=== PATIENT | female | born 1935 | race Caucasian/White ===

== ENCOUNTER 2019-05-19 12:26 | Emergency (ER) | payer MEDICARE, SELFPAY ==
--- NOTE | ~2019-05-19 | XR_ITS ---
EXAMINATION: XR elbow LT 2V EXAM DATE: 05/19/2019 14:33 INDICATION: Initial encounter following injury, with pain of the left elbow. TECHNIQUE: Left elbow frontal, lateral with flexion, and oblique projections obtained and reviewed. There is no prior study for comparison. FINDINGS: Left elbow anterior humeral line intact. There are no acute fractures or dislocations aguilar ntified. There is no subcutaneous gas. The soft tissue is unremarkable. There are no radiopaque f oreign bodies. IMPRESSION: 1. XR elbow LT 2V exam without acute osseous findings. Reviewed, dictated and finalized at location A. RNAL FETAL PHYSICIAN
--- NOTE | ~2019-05-19 | XR_ITS ---
XR chest 1V 05/19/2019 14:33 Indication: Right lateral rib pain after fall Procedure: PA view of the chest Comparison: No prior studies for comparison. Findings: Heart size normal. No focal air space disease, pulmonary edema, pleural effusion or suspect ed pneumothorax. Calcified granuloma left lung base. There is atherosclerosis of the aorta. No acute osseous abnormality. Impression: 1: No acute cardiopulmonary disease. Reviewed, dictated and finalized at location B. ATRIC PHYSICIAN Impression: 1: No acute cardiopulmonary disease.
--- NOTE | ~2019-05-19 | XR_ITS ---
EXAMINATION: XR shoulder LT min 2V EXAM DATE: 05/19/2019 14:32 INDICATION: Initial encounter following injury, with pain of the left shoulder. TECHNIQUE: The following left shoulder projections obtained: frontal projection with internal rotatio n, frontal projection with external rotation, Grashey, and scapular Y view (4+ views). There are no prior studies for comparison. FINDINGS: No evidence of left shoulder rotator cuff calcific tendinosis. 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 There are no acute fractures or dislocations identified. There is no subc utaneous gas. The soft tissue is unremarkable. There are no radiopaque foreign bodies. IMPRESSION: 1. XR shoulder LT min 2V exam without acute osseous findings. Reviewed, dictated and finalized at location A. EDGE STITCHER HAND
--- NOTE | ~2019-05-19 | XR_ITS ---
EXAMINATION: XR wrist LT min 3V EXAM DATE: 05/19/2019 14:33 INDICATION: Initial encounter following injury, with pain of the left wrist. TECHNIQUE: Left wrist frontal, frontal with ulnar deviation, oblique and lateral projections obtained and reviewed. There is no prior study for comparison. FINDINGS: Left wrist scapholunate joint space is maintained. 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 There are no acute fractures or dislocations identified. There is no subcuta neous gas. The soft tissue is unremarkable. There are no radiopaque foreign bodies. IMPRESSION: 1. XR wrist LT min 3V exam without acute osseous findings. Reviewed, dictated and finalized at location A. OUT INSPECTOR
[2019-05-19 13:29] VITALS: BP 127/75; PULSE 76; RESP 18; TEMP 36.6; O2SAT 100
--- NOTE | 2019-05-19 15:04 | ED.GENADULT ---
HPI - General Adult General Chief complaint: Fall <TANMAY Weber Last Filed: 05/19/19 15:09> Stated complaint: fall- arm pain <TANMAY Weber Last Filed: 05/19/19 15:09> Time Seen by Provider: 05/19/19 14:14 <TANMAY Weber Last Filed: 05/19/19 15:09> Source: patient <TANMAY Weber Last Filed: 05/19/19 15:09> Mode of arrival: ambulatory <TANMAY Weber Last Filed: 05/19/19 15:09> Limitations: no limitations <TANMAY Weber Last Filed: 05/19/19 15:09> History of Present Illness HPI narrative: Patient is a 83-year-old female who presents to emergency department for evaluation of left upper extremity injury that occurred 2 days ago after tripping while ambulating because of her shoes fell forward injuring the right lateral rib the left wrist elbow and shoulder. Denies head injury syncope loss of consciousness neck pain or other complaints presents per private vehicle in no distress. Patient does not take anything for symptoms <TANMAY Weber Last Filed: 05/19/19 15:09> Related Data Allergies/adverse reactions: Allergies Allergy/AdvReac Type Severity Reaction Status Date / Time Sulfa (Sulfonamide Allergy Unknown Verified 03/06/16 10:25 Antibiotics) <TANMAY Weber Last Filed: 05/19/19 15:09> Review of Systems Review of Systems: Narrative: CONSTITUTIONAL: Denies fever, chills, or sweats. EYES: Denies visual changes, redness, or discharge. ENT: Denies rhinorrhea, or epistaxis RESPIRATORY: Denies cough or dyspnea. GASTROINTESTINAL: Denies abdominal pain, nausea, vomiting, or diarrhea. GENITOURINARY: Denies dysuria or hematuria. SKIN: Positive for bruising and swelling MUSCULOSKELETAL: Denies back pain NEUROLOGIC: Denies headache, numbness, dizziness, or weakness. <TANMAY Weber Last Filed: 05/19/19 15:09> PMF Family History Family History: Family History (Updated 03/09/16 @ 11:39 by DOCTOR UNKNOWN) Father Family history of coronary artery disease Patient's father is Other Family history of arthritis Family history of cardiovascular disease <Terry Zheng PA-C - Last Filed: 05/19/19 15:09> Social History Social History: Social History Smoking status: Never smoker Alcohol intake: never Gender identity (if verbalized by the patient): Female <Terry Zheng PA-C - Last Filed: 05/19/19 15:09> Exam Narrative: Exam Narrative: GENERAL: Well-appearing, well-nourished, and in no acute distress. HEAD: Normocephalic, atraumatic. EYES: PERRLA and EOMI. ENT: Nares clear, no rhinorrhea or epistaxis. Mucous membranes moist. Oropharynx without tonsillar hypertrophy exudate or other lesions. NECK: Supple. No adenopathy or masses. CHEST: Clear to auscultation. No respiratory distress. No wheezes rales or rhonchi HEART: Regular rate and rhythm. No murmur heard. Normal peripheral pulses. ABDOMEN: Soft, nontender, nondistended EXTREMITIES: Normal range of motion. No edema. Patient with tenderness of the left shoulder left elbow and left wrist small amount of bruising around the left wrist. Mild tenderness to the right lateral ribs no deformity. No cervical thoracic or lumbar tenderness SKIN: Warm, dry, no rash. NEURO: No focal deficits. Alert and oriented x3. Cranial nerves II through XII grossly intact. Normal speech. Neurovascularly intact PSYCH: Normal mood and affect. <Terry Zheng PA-C - Last Filed: 05/19/19 15:09> Course Course Emergency Course: Patient in the room aware of case findings treatment plan and diagnosis agreeing to follow-up as directed or to return if symptoms worsen or concerns <Terry Zheng PA-C - Last Filed: 05/19/19 15:09> Vital Signs Vital signs: Vital Signs Temperature 97.9 F 05/19/19 13:29 Pulse Rate 76 01
== END 2019-05-19 15:53 | disposition home or self-care (01) ==
PROVIDERS: Emergency Provider General Practice
DX: S49.92XA Unspecified injury of left shoulder and upper arm, initial encounter (principal); S20.211A Contusion of right front wall of thorax, initial encounter; W01.0XXA Fall on same level from slipping, tripping and stumbling without subsequent striking against object, initial encounter
CPT/HCPCS: 71045; 73030; 73070; 73110; 99284

== ENCOUNTER 2024-08-12 17:59 | Observation (INO) | payer MEDICARE, SELFPAY ==
--- NOTE | ~2024-08-12 | CT_ITS ---
CTA brain carotid Ordering provider: Lor Puente PA-C History: . R facial droop . Comparison: None. Technique: CT angiogram head and neck was performed following timed intravenous injection of contrast . Thin slice axial images and reformatted coronal images were obtained. Three dimensional reformatted images of the brain were also obtained using a [employer] workstation. DLP: 854 mGy-cm FINDINGS: HEAD: --ANTERIOR AND MIDDLE CEREBRAL ARTERIES AND BRANCHES: Normal caliber and contour. --INTERNAL CAROTID ARTERIES: Mild atheromatous disease but no significant stenosis. No occlusion. --BASILAR ARTERY AND BRANCHES: Normal caliber and contour. No atheromatous disease. 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 --ANEURYSM: None visualized. --BRAIN: Please refer to report of CT head performed the same day. --BONES AND SUPERFICIAL SOFT TISSUES: Please refer to report of CT head performed the same day. --PARANASAL SINUSES AND MASTOIDS: Please refer to report of CT head done the same day. NECK: --RIGHT CERVICAL CAROTID SYSTEM: Normal caliber and contour. Percent stenosis per NASCET criteria is 0% No carotid dissection. Otherwise, no significant atheromatous disease or stenosis of the cervical carotid system. --LEFT CERVICAL CAROTID SYSTEM: Mild atheromatous disease of the carotid bulb and proximal internal c arotid artery without significant stenosis. Percent stenosis per NASCET criteria is 30%. No carotid dissection. --VERTEBRAL ARTERIES: Right side dominant. Normal caliber and contour. --VISUALIZED AORTIC ARCH AND BRANCHING VESSELS: Mild atheromatous disease. 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 --SOFT TISSUES: Heterogeneous appearance of the thyroid gland, a nonspecific finding in a patient of this age. --CERVICAL SPINE: Age appropriate degenerative changes. IMPRESSION: Percent stenosis per NASCET criteria is 0% on the right and 30% on the left. 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 No large vessel occlusion. Reviewed, dictated and finalized at location A.
--- NOTE | ~2024-08-12 | CT_ITS ---
History: Facial droop PROCEDURE: CT head without contrast. COMPARISON: None TECHNIQUE: Axial imaging of the head performed from the skull base to the vertex without IV contrast. Sagittal a nd coronal reformations obtained. DLP: 605 mGy-cm FINDINGS: The ventricles are normal in size, shape and position. There is no mass, mass effect or midline shift. There is no abnormal extra-axial fluid collection or intracranial hemorrhage. Visualized paranasal sinuses are clear. The mastoid air cells are well aerated. No acute displaced fractures within the overlying cranium. Impression: No acute intracranial hemorrhage or suspicious mass effect. Of note, this was not designated as a code stroke evaluation Reviewed, dictated and finalized at location A. Impression: No acute intracranial hemorrhage or suspicious mass effect. Of note, this was not designated as a code stroke evaluation
--- NOTE | ~2024-08-12 | MR_ITS ---
EXAMINATION: MR brain/brain stem wo/w con DATE: 08/13/2024 11:24 INDICATION: Acute stroke with right facial droop TECHNIQUE: Magnetic resonance imaging (MRI) of the brain and brainstem was performed 12 mL ProHance i ntravenous contrast. Sequences included sagittal and axial T1-weighted SE, axial diffusion-weighted F S SE, axial T2*-weighted GRE, axial T2-weighted FLAIR, and axial T2-weighted FSE. Postcontrast axial and coronal T1-weighted SE was obtained. Apparent diffusion coefficient (ADC) maps were created. COMPARISON: Head CT and CT angiogram dated 08/12/2024 FINDINGS: There are no areas of restricted diffusion to suggest acute infarction. No intracranial hemorrhage or abnormal intracranial mass lesion. Single small focus of white matter T2 hyperintensity the right fr ontal lobe which is well within normal limits for age. There are no intraparenchymal signal abnormali ties seen on the other pulse sequences. The ventricles are symmetric and normal in size. There are no abnormal extra-axial fluid collections. Flow voids are seen in the cerebral arteries on the T2-weigh jayleen sequences consistent with their expected patency. Changes of bilateral intraocular lens replaceme nt. Visualized orbits and soft tissues are unremarkable. There are no areas of abnormal enhancement o n the post contrast images. IMPRESSION: 1. Normal for age brain. No acute intracranial process. Reviewed, dictated and finalized at location B.
--- OUTSIDE RECORDS SUMMARY | 2024-08-12 18:01 | XMS_ITS | Clinical Summary ---
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 This disclosure is being madepursuant to the Care Everywhere program and may not contain all information available regarding this patient. Last updated 18.[facility] [employer] Allergies Active Allergy Reactions Criticality Noted Date Comments Sulfamethoxazole W-Trimethoprim 03/08 Medications * Be aware that medications may not be up to date on this document. Alwaysverify current medications with the patient. Medication Sig Dispensed Refills Start Date End Date Status omeprazole (PRILOSEC) 20 MG capsule Take 20 mg by mouth daily before breakfast Active clopidogrel (PLAVIX) 75 MG tablet Take 75 mg by mouth once daily Active fosinopril (MONOPRIL) 40 MG tablet Take 40 mg by mouth once daily Active amLODIPine (NORVASC) 5 MG tablet Take 5 mg by mouth once daily Active triamterene-hydroCHLORO thiazide (DYAZIDE) 37.5-25 MG capsule Take 1 Cap by mouth once daily Active pravastatin (PRAVACHOL) 20 MG tablet Take 20 mg by mouth at bedtime Active fluticasone propionate (FLONASE) 50 MCG/ACT nasal sprayIndications:Acute nasopharyngitis Baxter 1 Baxter into each nostril 2 times daily 1 Bottle 03/29/2016 Active Social History Tobacco Use Types Packs/Day Years Used Date Smoking Tobacco: Never Alcohol Use Standard Drinks/Week Comments No 0 (1 standard drink = 0.6 oz pur e alcohol) Sex and Gender Information Value Date Recorded Sex Assigned at Not on file Gender Identity Not on file Sexual Orientation Not on file Last Filed Vital Signs Vital Sign Reading Time Taken Comments Blood Pressure 128/74 03/29/2016 2:25 PM CAR INSTALLATIONS SUPERVISOR Pulse 86 03/29/2016 2:25 PM CAR INSTALLATIONS SUPERVISOR Temperature 36.8 C (98.3 F) 03/29/2016 2:25 PM CAR INSTALLATIONS SUPERVISOR Respiratory Rate 16 03/29/2016 2:25 PM CAR INSTALLATIONS SUPERVISOR Oxygen Saturation 96% 03/29/2016 2:25 PM CAR INSTALLATIONS SUPERVISOR Inhaled Oxygen Concentration - - Weight 63.5 kg (140 lb) 03/29/2016 2:25 PM CAR INSTALLATIONS SUPERVISOR Height 160 cm (5' 3 ) 03/29/2016 2:25 PM CAR INSTALLATIONS SUPERVISOR Body Mass Index 24.8 03/29/2016 2:25 PM CAR INSTALLATIONS SUPERVISOR Plan of Treatment Health Maintenance Due Date Last Done Comments BONE DENSITY TESTING 1934 MEDICARE AWV 12 MONTHS 1934 DTAP/TDAP/TD VACCINES (1 - Tdap) 1953 PNEUMOCOCCAL VACCINE 50+ (1 of 1 - PCV) 1984 ZOSTER VACCINE (1 of 2) 1984 Respiratory Syncytial Virus (RSV) Vaccine Pt: or over 60 yrs (1 - 1-dose 75+ series) 2009 COVID-19 VACCINE (1 - 2023-2 5 season) 2024 DEPRESSION SCREENING 05/07/2024 INFLUENZA VACCINE (Season Ended) 2025 HEPATITIS B VACCINE Aged Out No longe r eligible based on patient's age to complete this topic HIB VACCINE Aged Out No longer eligi ble based on patient's age to complete this topic HPV VACCINE Aged Out No longer eligi ble based on patient's age to complete this topic MENINGOCOCCAL (Group B) VACC INE SHARED DECISION-MAKING Aged Out No longer eligibl e based on patient's age to complete this topic MENINGOCOCCAL GROUPS A/C/Y/W VACCINE Aged Out No longer eligible b ased on patient's age to complete this topic
--- OUTSIDE RECORDS SUMMARY | 2024-08-12 18:01 | XMS_ITS | Clinical Summary ---
Author Organization [address] Address [address] [place] [phone] Care Team Providers Care Dictaphone Transcriber Name Role Phone Francia Juárez MD Primary Care Provider Francia Juárez MD Unavailable [phone] Jaylen Iglesias MD Unavailable [phone] Allergies Active Allergy Reactions Criticality Noted Date Comments Aspirin Other (See comments) Low 02/08/2017 On plavix Increased risk of bleeding on celebrex Not an allergy but contraindication Azithromycin Diarrhea Low 12/12/2021 Cat Dander Rhinitis Low 12/26/2023 Dog Dander Rhinitis Low 12/26/2023 Sulfa Unknown Medium 12/26/2023 Sulfamethoxazole-Trim ethoprim Unknown 03/29/2016 Medications coenzyme Q10 100 mg capsule Take 4 capsules (400 mg total) by mouth 2 (two) times a day Active cholecalciferol (VITAMIN D-3) 2,000 unit capsule 1 capsule (2,000 Units total) Active alpha lipoic acid 300 mg capsule 1 capsule (300 mg total) Active ascorbic acid (VITAMIN C) 500 mg tablet,chewable Acti ve estradioL (Estrace) 0.01 % (0.1 mg/gram) vaginal cream Insert 1 g into the vagina 2 (two) times a week 42.5 g 1 Active Additional Information Patient not taking.Reported on 08/12/2024 celecoxib (CeleBREX) 200 mg capsule daily Active cetirizine (ZyrTEC) 10 mg tablet Take 1 tablet (10 mg total) by mouth daily as needed for allergies 30 tablet 3 3 Active aspirin 81 mg chewable tablet Take 1 tablet (81 mg total) by mouth daily Active atorvastatin (LIPITOR) 20 mg tablet Take 1 tablet (20 mg total) by mouth daily 90 tablet 3 4 09/19/19 25 Active Additional Information Patient not taking.Reported on 08/12/2024 amLODIPine (NORVASC) 5 mg tablet Take 1 tablet (5 mg total) by mouth daily 90 tablet 3 4 Active omeprazole (PriLOSEC) 20 mg capsule Take 1 capsule (20 mg total) by mouth daily 90 capsule 3 4 Active hydroCHLOROthia zide 12.5 mg tablet Take 1 tablet (12.5 mg total) by mouth daily 90 tablet 3 4 Active atorvastatin (LIPITOR) 20 mg tablet Take 1 tablet (20 mg total) by mouth daily 90 tablet 3 4 Active Additional Information Patient not taking.Reported on 08/12/2024 fosinopriL (MONOPRIL) 40 mg tablet Take 1 tablet (40 mg total) by mouth 2 (two) times a day 180 tablet 3 4 Active atorvastatin (LIPITOR) 20 mg tablet Take 1 tablet (20 mg total) by mouth daily 4 Active celecoxib (CeleBREX) 200 mg capsule Take 1 capsule (200 mg total) by mouth daily 4 Active ALPRAZolam (XANAX) 0.25 mg tablet Take 1 tablet (0.25 mg total) by mouth daily as needed for anxiety 30 tablet 5 Active doxycycline (VIBRAMYCIN) 100 mg capsuleIndicati ons:Lower respiratory infection (e.g., bronchitis, pneumonia, pneumonitis, pulmonitis) Take 1 tablet/capsule (100 mg total) by mouth 2 (two) times a day for 7 days 14 tablet/capsu le 5 07/14/19 Active Problems Problem Noted Date Diagnosed Date 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 continue calcium and vitamin D. will plan to see bone health next year when can get another bone density done (2 years after last) Idiopathic peripheral neuropathy 01/27/2020 Assessment & Plan (01/08/2024 4:11 PM CDT): Stocking sensory loss in legs suggestive of neuropathy. EMG/NCS not performed. Likely due to prediabetes. 10/21/21 HgbA1c 6.4. Low carbohydrate diet discussed. 02/08/17 B12 472 01/13/16 ESR 6.0 Assessment & Plan (01/19/2023 4:04 PM CDT): Decreased vibratory sensation distal to the mid shins suggestive of neuropathy. EMG/NCS not performed. Likely due to prediabetes. 10/21/21 HgbA1c 6.4. Low carb diet discussed again. 02/08/17 B12 472 01/13/16 ESR 6.0 Assessment & Plan (01/27/2022 4:32 PM CDT): Decreased vibratory sensation distal to the mid shins suggestive of neuropathy. EMG/NCS not performed. Likely due to prediabetes. 10/21/21 HgbA1c 6.4. Low carb diet discussed. 02/08/17 B12 472 01/13/16 ESR 6.0 SPEP and immunofixation with next blood draw. Assessment & Plan (01/28/2021 12:47 PM CDT): Decreased vibratory sensation distal to the mid shins suggestive of neuropathy. EMG/NCS not performed. Likely due to prediabetes 01/13/16 HgbA1c 6.2; 10/03/19 HgbA1c 6.0 Low carb diet discussed. 02/08/17 B12 472 01/13/16 ESR 6.0 Will order SPEP and immunofixation with next blood draw. Assessment & Plan (01/27/2020 6:21 PM CDT): Decreased vibratory sensation distal to the mid shins suggestive of neuropathy. EMG/NCS not performed. Likely due to prediabetes 01/13/16 HgbA1c 6.2 Low carb diet discussed. 02/08/17 B12 472 01/13/16 ESR 6.0 Will order SPEP and immunofixation with next blood draw. Osteoarthritis of right knee 01/28/2019 Assessment & Plan (01/08/2024 4:15 PM CDT): Severe radiographically in 2017 Steroid injections ineffective Orthopedic follow-up Physical therapy helpful Celebrex helpful. Assessment & Plan (01/19/2023 4:10 PM CDT): Severe radiographically in 2017 Steroid injections ineffective Orthopedic follow-up Physical therapy helpful Celebrex helpful. Assessment & Plan (01/27/2022 4:36 PM CDT): Severe radiographically in 2017 Receiving steroid injections Orthopedic follow-up Scheduled for physical therapy initiation next week. Assessment & Plan (01/28/2021 12:48 PM CDT): Severe radiographically in 2017 Status post steroid injection Orthopedic follow-up Assessment & Plan (01/27/2020 6:20 PM CDT): Severe radiographically in 2017 Status post steroid injection Orthopedic follow-up Assessment & Plan (01/28/2019 11:30 AM CDT): Severe radiographically in 2017 Status post steroid injection Orthopedic follow-up If needs knee replacement, can be off aspirin for 8 days. Urinary frequency 12/18/2018 History of UTI 12/18/2018 Abnormal involuntary movements 01/11/2018 Assessment & Plan (01/08/2024 4:14 PM CDT): Involuntary hand contraction, affecting either hand, for up to 30 seconds for greater than 10 years. Focal motor seizures seem possible in the past, especially since her daughter has seizures. However, she had bilateral hand curling on April 30, 2023 which would be very atypical for seizures. Aspirin 81 mg daily, especially with 50-69% stenosis of left internal carotid artery. Continue hypertension control Atorvastatin 20 mg daily Assessment & Plan (01/19/2023 4:07 PM CDT): Involuntary hand contraction, affecting either hand, for up to 20 seconds for greater than 10 years. Focal motor seizures are possible, especially since her daughter has seizures. Resume aspirin 81 mg daily, especially with 50-69% stenosis of left internal carotid artery. Continue hypertension control Continue atorvastatin Assessment & Plan (01/27/2022 4:30 PM CDT): Involuntary hand contraction, affecting either hand, for up to 20 sec for greater than 10 years. Focal motor seizures are possible, especially since her daughter has seizures. Change aspirin 81 mg daily from 325 mg Continue hypertension control Continue atorvastatin Assessment & Plan (01/28/2021 12:47 PM CDT): Involuntary hand contraction, affecting either hand, for up to 20 sec for greater than 10 years. Focal motor seizures are possible, especially since her daughter has seizures. Aspirin 325 mg daily Continue hypertension control Continue atorvastatin Assessment & Plan (01/27/2020 6:15 PM CDT): Involuntary hand contraction, affecting either hand, for up to 20 sec for greater than 10 years. Focal motor seizures are possible, especially since her daughter has seizures. Aspirin 325 mg daily Continue hypertension control Continue pravastatin Assessment & Plan (01/28/2019 11:29 AM CDT): Involuntary hand contraction, affecting either hand, for up to 20 sec for greater than 10 years. Since symptoms have been bilateral over the past few years, transient ischemia attack seems less likely. Focal motor seizures are possible, especially since her daughter has seizures. Aspirin 325 mg daily Continue hypertension control Continue pravastatin Assessment & Plan (01/11/2018 2:30 PM CDT): Involuntary hand contraction, affecting either hand, for up to 20 sec for greater than 10 years. Since symptoms have been bilateral over the past few years, transient ischemia attack seems less likely. Focal motor seizures are possible, especially since her daughter has seizures. Will change Plavix 75 mg daily to aspirin 325 mg daily Continue hypertension control Continue pravastatin Dysesthesia 01/11/2018 Assessment & Plan (01/11/2018 2:32 PM CDT): Improved. No evidence of neuropathy on examination. Serologies for causes of peripheral neuropathy demonstrated pre diabetes with a hemoglobin A1c of 6.2 Prediabetes 01/11/2018 Assessment & Plan (01/28/2019 11:29 AM CDT): 01/13/16 HgbA1c 6.2 Low carb diet discussed. Decreased vibratory sensation in the feet bilaterally could be due to early neuropathy Assessment & Plan (01/11/2018 2:32 PM CDT): Low carb diet discussed. Involutional osteoporosis 08/09/2016 Overview (09/29/2016): Age-related osteoporosis without current pathological fracture Essential (primary) hypertension 08/09/2016 Overview (09/29/2016): Essential hypertension Benign colonic polyp 07/28/2016 Osteopenia 08/26/2014 Overview (08/10/2016): Osteopenia Hypertension 03/31/2013 Overview (08/10/2016): HYPERTENSION NOS Overweight 03/31/2013 Overview (08/11/2016): Overweight Hyperlipidemia 03/31/2013 Overview (08/11/2016): HYPERLIPIDEMIA NEC/NOS Vitamin D deficiency 01/30/2012 Overview (08/10/2016): VITAMIN D DEFICIENCY NOS Gastroesophageal reflux disease 01/30/2012 Overview (08/11/2016): ESOPHAGEAL REFLUX Obstructive sleep apnea syndrome 07/08/2007 Overview (08/10/2016): OBSTRUCTIVE SLEEP APNEA Resolved Problems Problem Noted Date Diagnosed Date Resolved Date Aspirin contraindicated 02/08/201711/2017 Overview (02/08/2017): Currently on plavix Benign essential hypertension 08/26/2014 09/19/2017 Overview (08/10/2016): Benign essential hypertension Temporary cerebral vascular dysfunction 09/20/2013 01/11/2018 Overview (08/10/2016): TIA (transient ischemic attack) Personal history of transien t cerebral ischemia 03/31/2013 01/11/2018 Overview (08/11/2016): Hx-TIA (transient ischemic attack) Encounters Date Type Department Care Team Description 08/12/2024 6:00 PM CDT Office Visit [facility] at [address] [phone] Clemencia Gonsalez NP Arrived 08/12/2024 Nurse Triage [address] [place] [phone] Francia Juárez MD 08/01/2024 10:15 AM CDT Ancillary Procedure [facility] Lab at the [address] [place] [address] Stenosis of carotid artery, unspecified laterality; Bilateral carotid artery stenosis 07/06/2024 2:15 PM [employer] Office Visit [facility] at [address] [phone] Jazmín Harding NP Lower respiratory infection (e.g., bronchitis, pneumonia, pneumonitis, pulmonitis) (Primary Dx) 06/11/[address] [phone] Brittnee Rahman NP 06/04/2024 11:38 AM [employer] - 06/04/2024 11:59 PM [employer] Hospital Encounter [facility] [address] [place] [address] Discharge Disposition: Discharge to home or self care 06/04/[address] [phone] Francia Juárez MD 06/04/2024 Orders Only [facility] at the [address] [phone] Brittnee Rahman, IMELDA Abnormal renal function test 05/30/2024 Telephone [facility] [address] [facility] [address] [place] [address] Francia Juárez MD Additional Services Or Orders from Last 3 Months Immunizations Immunization Administration Dates Next Due COVID-19 MRNA (MODERNA) .5 M L (50 MCG) VACCINE (12 YEARS AND UP) 03/04/2024 Influenza, Quad, Adjuvantate d, Intramuscular 01/28/2023,01/16/2020 Influenza, Quadrivalent, Hig h Dose, Preservative Free, Intrr 02/09/2022,02/01/2021 Influenza, Split 02/08/2010 Influenza, Trivalent, Adjuva nted, Intramuscular 02/19/2019 Influenza, Trivalent, High D ose, Split, Preservative Free, Intramuscular 02/08/2017,02/09/2016,02/10/2015,01/30 Influenza, Trivalent, IM (MDV) 02/04/2013,2011,02/08/2011 Influenza, Trivalent, Preser vative Free, Intramuscular 02/04/2013 Influenza, Unspecified 02/04/2021,02/19/2019,05/2017 Pfizer SARS-CoV-2 Monovalent Vaccination (12+ Yrs) PURPLE 02/18/2021,07/09/2020,06/15/2020 Pneumococcal Conjugate PCV 13 02/10/2015 Pneumococcal Polysaccharide PPV23 09/24/2018,05/2006 RSV Vaccine, Pref, Recombina nt, Subunit, Adjuvanted, PF, IM (Arexvy) 04/05/2023 ZOSTER LIVE 03/18/2013 ZOSTER Recombinant 03/04/2019,11/24/2018 Surgical History Surgery Date Site/Laterality Comments OTHER SURGICAL HISTORY vitamin D deficiency: Drug therapy HYSTERECTOMY BREAST LUMPECTOMY 05/07/1952 - 05/06/1953 Medical History Medical History Date Comments Arthritis Arthritis Hx Other Medical Headache, migra ine Hx Other Medical vitamin D defic iency Hyperlipidemia 03/31/2013 HYPERLIPIDEMIA N EC/NOS Family History Medical History Relation Name Comments Heart attack Father Heart attack; Heart disease Father Heart disease Mother Heart failure Mother Congestive hea rt failure; Relation Name Status Comments Father Mother Social History Tobacco Use Types Packs/Day Years Used Date Smoking Tobacco: Never Smokeless Tobacco: Never Tobacco Cessation:Counseling Given: Not Answered Alcohol Use Standard Drinks/Week Comments No 0 (1 standard drink = 0.6 oz pur e alcohol) AUDIT-C Answer Date Recorded Q1: How often do you have a drink containing alc ohol? Never 06/14/2021 Average Number of Drinks Not on file 022 Frequency of Binge Drinking Not on file 12/2021 PHQ-2 Answer Date Recorded PHQ-2 Total Score (If total score is 3 or more points, staff should administer the PHQ-9) 0 04/24/2024 Exercise Vital Sign Answer Date Recorde d Days of Exercise per Week 0 days 2018 Minutes of Exercise per Session 0 min 12/18/2018 Comments No Sex and Gender Information Value Date Recorded Sex Assigned at Not on file Legal Sex Female 1:49 AM [employer] Gender Identity Female 11/16/2021 11:10 AM CDT Sexual Orientation Not on file Obstetrics History Para Term AB IAB SAB Ectopic Multiple Livin g Live Births 3 3 3 0 0 0 0 0 3 3 Date Outcome GA Total Labor Labor/2nd/3rd Weight Sex Type Anes PTL Maylin A1 A5 Name Clin Term U Vag-S pont Living Term U Vag-S pont Living Complications:None Term 4.445 kg (9 lb 12.8 oz) U Vag-S pont Living Complications:None Last Filed Vital Signs Vital Sign Reading Time Taken Comments Blood Pressure 192/80 08/12/2024 5:26 PM CDT Pulse 74 08/12/2024 5:26 PM CDT Temperature 36.7 C (98 F) 07/06/2024 2:19 PM [employer] Respiratory Rate 20 08/12/2024 5:26 PM CDT Oxygen Saturation 95% 08/12/2024 5:26 PM CDT Inhaled Oxygen Concentration - - Weight 61.7 kg (136 lb) 08/12/2024 5:26 PM CDT Height 160 cm (5' 2.99 ) 08/12/2024 5:26 PM CDT Body Mass Index 24.1 08/12/2024 5:26 PM CDT Plan of Treatment Health Maintenance Due Date Last Done Comments DTaP/Tdap/Td Vaccine (1 - Tdap) 1946 Hepatitis B Screening 1953 Covid-19 Vaccine ( season) 2024 03/04/2024, 03/04/2024, 02/09/2023, Additional history exists Depression Screening 04/24/2025 04/24/2024, 10/16/2023, 04/24/2023, Additional history exists Fall Risk Assessment 04/24/2025 04/24/2024, 10/16/2023, 04/24/2023, Additional history exists Well Visit 65+ 04/24/2025 04/24/2024, 04/06, 04/21/2022, Additional history exists Pneumococcal vaccine 65+ Completed , 02/10/2015, 05/07/2006 Zoster Vaccine Completed 03/04/2019, 11/05, 03/18/2013 Influenza Vaccine Completed 02/08/2024, , 02/09/2022, Additional history exists Procedures Procedure Name Priority Date/Time Associated Diagnosis Comments US CAROTIDS DUPLEX BILATERAL Schedule Routine, Read Routine (OP Routine) 08/01/2024 10:10 AM CDT Stenosis of carotid artery, unspecified laterality Bilateral carotid artery stenosis EGFR Routine 06/04/2024 11:38 AM [employer] Abnormal renal function test RENAL FUNCTION PANEL Routine 06/04/2024 11:38 AM [employer] Abnormal renal function test from Last 3 Months Results * US Carotids Duplex Bilateral (08/01/2024 10:10 AM CDT) Anatomical Region Laterality Modality Vascular Bilateral Ultrasound 08/01/2024 9:49 AM CDT Narrative 08/02/2024 8:57 AM CDT [facility] - Department of Vascular Surgery, Vascular Laboratory [address] [place] [id number] Carotid Duplex Ultrasound Report Patient Name: ALEXANDREA BROOKE : 1935 (88y 8m) Study Date: 08/01/2024 9:49:09 AM Gender: F Tech: TT Location: [facility] Ref Provider: HOLLIE HALL Quality: Adequate Order Provider: HOLLIE HALL PROCEDURES: Carotid Report: Carotid duplex examination of the extracranial arteries was performed using 2D, color and spectral Doppler. INDICATIONS: I65.29 Occlusion and stenosis of unspecified carotid artery and I65.23 Occlusion and stenosis of bilateral carotid arteries. MEASUREMENTS: Right Value Units Left Value Units RT Prox CCA PSV 117 cm/sec LT Prox CCA PSV 86 cm/sec RT Prox CCA EDV 25 cm/sec LT Prox CCA EDV 21 cm/sec RT Distal CCA PSV 92 cm/sec LT Distal CCA PSV 91 cm/sec RT Distal CCA EDV 19 cm/sec LT Distal CCA EDV 24 cm/sec RT Prox ICA PSV 90 cm/sec LT Prox ICA PSV 202 cm/sec RT Prox ICA EDV 24 cm/sec LT Prox ICA EDV 65 cm/sec RT Mid ICA PSV 95 cm/sec LT Mid ICA PSV 86 cm/sec RT Mid ICA EDV 28 cm/sec LT Mid ICA EDV 20 cm/sec RT Distal ICA PSV 113 cm/sec LT Distal ICA PSV 87 cm/sec RT Distal ICA EDV 37 cm/sec LT Distal ICA EDV 24 cm/sec RT ECA Prx PSV 111 cm/sec LT ECA Prx PSV 97 cm/sec RT ICA/CCA 1.23 ratio LT ICA/CCA 2.22 ratio RT VERT PSV 61 cm/sec LT VERT PSV 68 cm/sec FINDINGS: Performing Energy Manager: Mika Plunkett RVT. Rt Common Carotid Artery: The plaque in the right CCA appears to be heterogeneous. Atherosclerotic changes of the right common carotid artery with no hemodynamically significant Doppler findings. Rt Internal Carotid Artery: The plaque in the right internal carotid artery appears to be heterogeneous and smooth. Atherosclerotic changes of the right internal carotid artery without hemodynamically significant Doppler findings. <50% stenosis. Rt External Carotid Artery: Patent right external carotid artery with evidence of atherosclerotic disease present. Rt Vertebral Artery: The right vertebral artery is patent with antegrade flow. Lt Common Carotid Artery: The plaque in the left CCA appears to be heterogeneous and smooth. Atherosclerotic changes of the left common carotid artery with no hemodynamically significant Doppler findings. Lt Internal Carotid Artery: The plaque in the left internal carotid artery appears to be heterogeneous, calcified and smooth. Significant atherosclerotic changes of the left internal carotid artery with elevated peak systolic velocity and end diastolic velocity, as above. 50-69% stenosis. Lt External Carotid Artery: Patent left external carotid artery with evidence of atherosclerotic disease present. Lt Vertebral Artery: The left vertebral artery is patent with antegrade flow. CONCLUSIONS: 1. The right internal carotid artery disease is consistent with a less than 50% stenosis. 2. The left internal carotid artery disease is consistent with a 50-69% stenosis. 3. No evidence of hemodynamically significant stenosis in the common carotid artery bilaterally. 4. Normal, antegrade flow is noted in bilateral vertebral arteries. HISTORY: HTN, HLD, Carotid disease - PREVIOUS STUDIES: Previous carotid ultrasound on 07-31-23 Rt. <50% Lt. 50-69%, <50% per PSV. DISCLAIMER: The study images and the final report will be retained in the patient chart by the Vascular Laboratory for the legally required time period. This chart constitutes the legal record of any testing performed. ATTESTATION: I have reviewed and interpreted the pertinent images and measurements of this study. I attest to the conclusions in the final report that is provided above. Electronically Signed By: Reggie Moore MD [facility] [phone] 08/02/2024 8:45:20 AM CDT Procedure Note Reggie Moore MD - 08/02/2024 [facility] - Department of Vascular Surgery,Vascular Laboratory [address] [place] [id number] Carotid Duplex Ultrasound Report Patient Name: ALEXANDREA BROOKE : 1935 (88y 8m) Study Date: 08/01/2024 9:49:09 AM Gender: F Tech: TT Location: [facility] Provider: HOLLIE HALL Quality: Adequate Order Provider: HOLLIE HALL PROCEDURES: Carotid Report: Carotid duplex examination of the extracranial arterieswas performed using 2D, color and spectral Doppler. INDICATIONS: I65.29 Occlusion and stenosis of unspecified carotid artery and I65.23Occlusion and stenosis of bilateral carotid arteries. MEASUREMENTS: Right Value Units Left Value Units RT Prox CCA PSV 117 cm/sec LT Prox CCA PSV 86 cm/sec RT Prox CCA EDV 25 cm/sec LT Prox CCA EDV 21 cm/sec RT Distal CCA PSV 92 cm/sec LT Distal CCA PSV 91 cm/sec RT Distal CCA EDV 19 cm/sec LT Distal CCA EDV 24 cm/sec RT Prox ICA PSV 90 cm/sec LT Prox ICA PSV 202 cm/sec RT Prox ICA EDV 24 cm/sec LT Prox ICA EDV 65 cm/sec RT Mid ICA PSV 95 cm/sec LT Mid ICA PSV 86 cm/sec RT Mid ICA EDV 28 cm/sec LT Mid ICA EDV 20 cm/sec RT Distal ICA PSV 113 cm/sec LT Distal ICA PSV 87 cm/sec RT Distal ICA EDV 37 cm/sec LT Distal ICA EDV 24 cm/sec RT ECA Prx PSV 111 cm/sec LT ECA Prx PSV 97 cm/sec RT ICA/CCA 1.23 ratio LT ICA/CCA 2.22 ratio RT VERT PSV 61 cm/sec LT VERT PSV 68 cm/sec FINDINGS: Performing Energy Manager: Mika Plunkett RVT. Rt Common Carotid Artery: The plaque in the right CCA appears to beheterogeneous. Atherosclerotic changes of the right common carotid artery with nohemodynamically significant Doppler findings. Rt Internal Carotid Artery: The plaque in the right internal carotidartery appears to be heterogeneous and smooth. Atherosclerotic changes of the right internalcarotid artery without hemodynamically significant Doppler findings. <50% stenosis. Rt External Carotid Artery: Patent right external carotid artery withevidence of atherosclerotic disease present. Rt Vertebral Artery: The right vertebral artery is patent with antegradeflow. Lt Common Carotid Artery: The plaque in the left CCA appears to beheterogeneous and smooth. Atherosclerotic changes of the left common carotid artery with nohemodynamically significant Doppler findings. Lt Internal Carotid Artery: The plaque in the left internal carotid arteryappears to be heterogeneous, calcified and smooth. Significant atherosclerotic changesof the left internal carotid artery with elevated peak systolic velocity and enddiastolic velocity, as above. 50-69% stenosis. Lt External Carotid Artery: Patent left external carotid artery withevidence of atherosclerotic disease present. Lt Vertebral Artery: The left vertebral artery is patent with antegradeflow. CONCLUSIONS: 1. The right internal carotid artery disease is consistent with a lessthan 50% stenosis. 2. The left internal carotid artery disease is consistent with a 50-69%stenosis. 3. No evidence of hemodynamically significant stenosis in the commoncarotid artery bilaterally. 4. Normal, antegrade flow is noted in bilateral vertebral arteries. HISTORY: HTN, HLD, Carotid disease - PREVIOUS STUDIES: Previous carotid ultrasound on 07-31-23 Rt. <50% Lt. 50-69%, <50% per PSV. DISCLAIMER: The study images and the final report will be retained in the patientchart by the Vascular Laboratory for the legally required time period. This chartconstitutes the legal record of any testing performed. ATTESTATION: I have reviewed and interpreted the pertinent images and measurements ofthis study. I attest to the conclusions in the final report that is provided above. Electronically Signed By: Reggie Moore MD [facility] [phone] 08/02/2024 8:45:20 AM CDT us Hollie Hall MD [facility] Final Result * (ABNORMAL) eGFR (06/04/2024 11:38 AM [employer]) eGFR 50(L) >=60 mL/min/1. 73 m2 Comment: Interpretive Data Reference Interval Normal >/= 90 mL/min/1.73m2 Mildly decreased* 60 - 89 mL/min/1.73m2 Mildly to moderately decreased 45 - 59 mL/min/1.73m2 Moderately to severely decreased 30 - 44 mL/min/1.73m2 Severely decreased 15 - 29 mL/min/1.73m2 Kidney Failure < 15 mL/min/1.73m2 *Relative to young adult level Estimated glomerular filtration rate is determined by the 2020 CKD-EPI equation recommended by the National Kidney Foundation (A Unifying Approach to GFR Estimation: Recommendations of the NKF-ASK Task Force on Reassessing the Inclusion of Race in Diagnosing Kidney Disease, JASN 2021). The CKD-EPI equation should not be used for patients with unstable renal function and has not been validated in children and those over 70. Current interpretive data was last reviewed 2021. Blood 06/04/2024 11:3 8 AM MIXER DIAMOND POWDER 06/04/2024 3:07 PM MIXER DIAMOND POWDER us Brittnee Rahman NP LAB BLOOD ORDERABLES Final Resu lt [facility] Department [place] [address] * Renal function panel (06/04/2024 11:38 AM MIXER DIAMOND POWDER) Sodium 140 135 - 145 mmol/L Potassium, pl 4.4 3.3 - 4.9 mmol/L [facility] Chloride 102 97 - 110 mmol/L [facility] CO2 30 22 - 32 mmol/L [facility] Anion gap 8 2 - 15 mmol/L [facility] BUN 24 6 - 25 mg/dL [facility] Creatinine 1.07 0.60 - 1.10 mg/dL [facility] Glucose 90 70 - 199 mg/dL [facility] Comment: Interpretive Data Fasting glucose >/= 126 mg/dl is diagnostic for diabetes. Fasting is defined as no caloric intake for at least 8 hours. Fasting glucose between 100 mg/dl to 125 mg/dl is diagnostic of prediabetes. In a patient with classic symptoms of hyperglycemia or hyperglycemic crisis, a random glucose >/= 200 mg/dl is diagnostic for diabetes. In the absence of unequivocal hyperglycemia, results should be confirmed by repeat testing. The classification and Diagnosis of Diabetes Diabetes Care 2021; 46: S19-S40. Current interpretive data was last revised 2022. Calcium 10.1 8.5 - 10.3 mg/dL [facility] Phosphorus, pl 2.9 2.3 - 4.5 mg/dL [facility] Albumin 4.3 3.5 - 5.0 g/dL [facility] Blood 06/04/2024 11:3 8 AM MIXER DIAMOND POWDER 06/04/2024 2:49 PM MIXER DIAMOND POWDER us Brittnee Rahman NP LAB BLOOD ORDERABLES Final Resu lt [facility] Department [place] [address] from Last 3 Months Insurance MEDICARE COMMERCIAL GENERIC Member Subscriber Plan / Payer (Ef fective 2018-) Name:Alexandrea Brooke Relation to Subscriber:Self Name:Alexandrea Brooke Payer ID:[id number] Group ID:[id number] Type:COMMERCIAL Address: [place] [id number] ELLIE MEDICARE SUPPLEMENT MEDICARE [facility] Care Teams Dictaphone Transcriber Relationship Specialty Start Date End Date Francia Juárez MD [facility] [address] [place] [address] PCP - General Internal Medicine 12/26/23 Francia Juárez MD [address] [place] [address] [address] [place] [address] 12/26/23 Jaylen Iglesias MD [address] [place] [address] Referring Physician Orthopedic Surgery 02/27/22
--- OUTSIDE RECORDS SUMMARY | 2024-08-12 18:01 | XMS_ITS | Referral Summary ---
Author Organization [facility] [address] Address [address] [place] [phone] Care Team Providers Care Door Technician Name Role Phone Francia Juárez MD Primary Care Provider Francia Juárez MD Unavailable [phone] Jaylen Iglesias MD Unavailable [phone] Encounters Date Type Department Care Team Description 08/12/2024 6:00 PM CDT Office Visit [facility] at [address] [phone] Clemencia Gonsalez NP Arrived 08/12/2024 Nurse Triage [address] [place] [phone] Francia Juárez MD 08/01/2024 10:15 AM CDT Ancillary Procedure [facility] at [facility] [address] [place] [address] 8th [place] [address] [place] [phone] Stenosis of carotid artery, unspecified laterality; Bilateral carotid artery stenosis 07/06/2024 2:15 PM HEALTH AND SAFETY MANAGER Office Visit [facility] at [address] [phone] Jazmín Harding NP Lower respiratory infection (e.g., bronchitis, pneumonia, pneumonitis, pulmonitis) (Primary Dx) 06/11/[address] [place] [address] Brittnee Rahman NP 06/04/2024 11:38 AM HEALTH AND SAFETY MANAGER - 06/04/2024 11:59 PM HEALTH AND SAFETY MANAGER Hospital Encounter [facility] [address] [place] [address] Discharge Disposition: Discharge to home or self care 06/04/[address] [place] [phone] Francia Juárez MD 06/04/2024 Orders Only [facility] at the [address] [phone] Brittnee Rahman NP Abnormal renal function test 05/30/[address] [phone] Francia Juárez MD Additional Services Or Orders from Last 3 Months Allergies Active Allergy Reactions Criticality Noted Date [...] 7 days 14 tablet/capsu le 5 07/14/19 25 Active Problems Problem Noted Date Diagnosed Date [...] 01/11/2018 Overview (08/11/2016): Hx-TIA (transient ischemic attack) Immunizations Immunization Administration Dates Next Due COVID-19 [...] 04/05/2023 ZOSTER LIVE 03/18/2013 ZOSTER Recombinant 03/04/2019,11/24/2018 Social History Tobacco Use Types Packs/Day Years [...] on file Legal Sex Female 1:49 AM HEALTH AND SAFETY MANAGER Gender Identity Female 11/16/2021 11:10 AM CDT Sexual Orientation Not on file Last Filed Vital Signs Vital Sign Reading Time Taken Comments Blood Pressure 192/80 08/12/2024 5:26 PM CDT Pulse 74 08/12/2024 5:26 PM CDT Temperature 36.7 C (98 F) 07/06/2024 2:19 PM HEALTH AND SAFETY MANAGER Respiratory Rate 20 08/12/2024 5:26 PM CDT Oxygen Saturation 95% 08/12/2024 5:26 PM CDT Inhaled Oxygen Concentration - - Weight 61.7 kg (136 lb) 08/12/2024 5:26 PM CDT Height 160 cm (5' 2.99 ) 08/12/2024 5:26 PM CDT Body Mass Index 24.1 08/12/2024 5:26 PM CDT Plan of Treatment Not on file Procedures Procedure Name Priority Date/Time Associated Diagnosis Comments US CAROTIDS DUPLEX BILATERAL Schedule Routine, Read Routine (OP Routine) 08/01/2024 10:10 AM CDT Stenosis of carotid artery, unspecified laterality Bilateral carotid artery stenosis EGFR Routine 06/04/2024 11:38 AM HEALTH AND SAFETY MANAGER Abnormal renal function test RENAL FUNCTION PANEL Routine 06/04/2024 11:38 AM HEALTH AND SAFETY MANAGER Abnormal renal function test from Last 3 Months Results * US Carotids Duplex Bilateral (08/01/2024 10:10 AM CDT) Anatomical Region Laterality Modality Vascular Bilateral Ultrasound 08/01/2024 9:49 AM CDT Narrative 08/02/2024 8:57 AM CDT [facility] - Department of Vascular Surgery, Vascular Laboratory [address] [place] [address] Carotid Duplex Ultrasound Report Patient Name: ALEXANDREA BROOKE : 1935 (88y 8m) Study Date: 08/01/2024 9:49:09 AM Gender: F Tech: TT Location: [facility] Ref Provider: HOLLIE HALL Quality: Adequate Order [...] LT VERT PSV 68 cm/sec FINDINGS: Performing Drapery Hemmer Automatic: Mika Plunkett RVT. Rt Common Carotid Artery: [...] above. Electronically Signed By: Reggie Moore MD [facility] [phone] 08/02/2024 8:45:20 AM CDT Procedure Note Reggie Moore MD - 08/02/2024 [facility] - Department of Vascular Surgery,Vascular Laboratory [address] [place] [address] Carotid Duplex Ultrasound Report Patient Name: ALEXANDREA BROOKE : 1935 (88y 8m) Study Date: 08/01/2024 9:49:09 AM Gender: F Tech: TT Location: [facility] Provider: HOLLIE HALL Quality: Adequate Order Provider: [...] LT VERT PSV 68 cm/sec FINDINGS: Performing Drapery Hemmer Automatic: Mika Plunkett RVT. Rt Common Carotid Artery: [...] - PREVIOUS STUDIES: Previous carotid ultrasound on 07-30-24 Rt. <50% Lt. 50-69%, <50% per PSV. [...] above. Electronically Signed By: Reggie Moore MD [facility] [phone] 08/02/2024 8:45:20 AM CDT us Hollie Hall MD IM US PROCEDURES Final Result * (ABNORMAL) eGFR (06/04/2024 11:38 AM HEALTH AND SAFETY MANAGER) eGFR 50(L) >=60 mL/min/1. 73 m2 Comment: [...] of Race in Diagnosing Kidney Disease, JASN 2020). The CKD-EPI equation should not be used for patients with unstable renal function and has not been validated in children and those over 70. Current interpretive data was last reviewed 2021. Blood 06/04/2024 11:3 8 AM HEALTH AND SAFETY MANAGER 06/04/2024 3:07 PM HEALTH AND SAFETY MANAGER Brittnee Rahman NP LAB BLOOD ORDERABLES Final Resu lt [facility] Department [place] [address] * Renal function panel (06/04/2024 11:38 AM HEALTH AND SAFETY MANAGER) Sodium 140 135 - 145 mmol/L Potassium, pl 4.4 3.3 - 4.9 mmol/L [facility] Chloride 102 97 - 110 mmol/L [facility] CO2 30 22 - 32 mmol/L [facility] Anion gap 8 2 - 15 mmol/L [facility] BUN 24 6 - 25 mg/dL [facility] Creatinine 1.07 0.60 - 1.10 mg/dL [facility] Glucose 90 70 - 199 mg/dL [facility] Comment: Interpretive Data Fasting glucose >/= 126 [...] classification and Diagnosis of Diabetes Diabetes Care 202; 46: S19-S40. Current interpretive data was last revised 2022. Calcium 10.1 8.5 - 10.3 mg/dL [facility] Phosphorus, pl 2.9 2.3 - 4.5 mg/dL [facility] Albumin 4.3 3.5 - 5.0 g/dL [facility] Blood 06/04/2024 11:3 8 AM HEALTH AND SAFETY MANAGER 06/04/2024 2:49 PM HEALTH AND SAFETY MANAGER Brittnee Rahman NP LAB BLOOD ORDERABLES Final Resu lt [facility] Department [place] [address] from Last 3 Months Insurance COMMERCIAL GENERIC ELLIE MEDICARE SUPPLEMENT MEDICARE [facility] Care Teams Door Technician Relationship Specialty Start Date End Date Francia Juárez MD [address] [place], [place] [address] [place] [address] PCP - General Internal Medicine 12/26/23 Francia Juárez MD [facility] [address] [place] [address] 12/26/23 Jaylen Iglesias MD [address] [place] [address] Referring Physician Orthopedic Surgery 02/27/22
--- OUTSIDE RECORDS SUMMARY | 2024-08-12 18:01 | XMS_ITS | Encounter Summary ---
Author Organization [facility] Health Address [address] [facility] [place] [address] Care Team Providers Care Internet Systems Administrator Name Role Phone Unavailable Primary Care Provider Unavailabl e Encounter Details Date Type Department Care Team (Late st Contact Info) Description 12/30/2020 Lab Requisition [facility] DermPath Lab [address] [facility], [place] [address] Sreekanth Thomas MD [address] [place] [address] Social History Tobacco Use Types Packs/Day Years Used Date Smoking Tobacco: Never Alcohol Use Standard Drinks/Week Comments No 0 (1 standard drink = 0.6 oz pur e alcohol) Sex and Gender Information Value Date Recorded Sex Assigned at Not on file Gender Identity Not on file Sexual Orientation Not on file documented as of this encounter Plan of Treatment Not on file documented as of this encounter Procedures Procedure Name Priority Date/Time Associated Diagnosis Comments DERMATOPATHOLOGY Routine 12/29/2020 12:0 0 AM CDT documented in this encounter Results * DERMATOPATHOLOGY (12/29/2020 12:00 AM CDT) Case Report Dermatopathology Report Case: [id number] Authorizing Provider: Sreekanth Thomas MD Collected: 12/29/2020 12:00 AM Ordering Location: [facility] DermPath Lab Received: 12/30/2020 11:13 AM Pathologist: Julia Hart MD Specimens: A) - Skin, right side nose B) - Skin, left upper cut lip C) - Skin, left side nose 2:57 PM CDT DERMATOPATHOLOGY LABORATORY Final Diagnosis Specimen A. 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 SKIN, left upper cut lip: BASAL CELL CARCINOMA, NODULAR TYPE (C44.319) Specimen C. SKIN, left side nose: INTRADERMAL MELANOCYTIC NEVUS (D22.39) 2:57 PM [facility] DERMATOPATHOLOGY LABORATORY Clinical History A-C: R/O BCC 2:57 PM [facility] DERMATOPATHOLOGY LABORATORY Gross Description Specimen A: Received is one formalin filled container labeled with the patient's name and designated right side nose. The specimen consists of a shave biopsy measuring 5x4x2 and 4x3x1 mm. Jar 0. Specimen B: Received is one formalin filled container labeled with the patient's name and designated left upper cut lip. The specimen consists of a shave biopsy measuring 6x6x2 mm. Jar 0. Specimen C: Received is one formalin filled container labeled with the patient's name and designated left side nose. The specimen consists of a shave biopsy measuring 4x3x1 mm. Jar 0. 2:57 PM [facility] DERMATOPATHOLOGY LABORATORY Microscopic Description Specimen A. SKIN, right side nose: Within the dermis there are aggregates of basaloid cells with a high nuclear to cytoplasmic ratio and peripheral palisading. Specimen B. SKIN, left upper cut lip: Within the dermis there are aggregates of basaloid cells with a high nuclear to cytoplasmic ratio and peripheral palisading. Specimen C. SKIN, left side nose: There are nests of cytologically bland melanocytes within the dermis that mature with depth. 2:57 PM [facility] DERMATOPATHOLOGY LABORATORY Disclaimer An external and internal positive and negative controls are appropriate for the histochemical, immunohistochemical and immunofluorescence stain(s) in this case (if any), except where stated explicitly. The performance characteristics of the stain(s) cited in this report were developed and its performance characteristic determined by the Dermatopathology Laboratory at [facility], directed by Dr. Analisa Hart. These tests need not be, and therefore are not, approved by the [place] Food and Drug Administration. The tests are used for clinical purposes. Billing Codes Specimen Charges Stain Charges 58200 53273 00876 1 1 1 08/27/202 1 2:57 PM CDT DERMATOPATHOLOGY LABORATORY Embedded Images 1 2:57 PM CDT DERMATOPATHOLOGY LABORATORY Pathology/Cytology TISSUE SPECIMEN FROM SKIN / Unknown 12/29/2020 12/30/2020 11:13 AM CDT Miscellaneous samples (specimen) TISSUE SPECIMEN FROM SKIN / Unknown 12/29/2020 12/30/2020 11:13 AM CDT Miscellaneous samples (specimen) TISSUE SPECIMEN FROM SKIN / Unknown 12/29/2020 12/30/2020 11:13 AM CDT Sreekanth Thomas MD LAB - PATHOLOGY/CYTO LOGY ORDERABLES DERMATOPATHOLOGY LABORATORY [facility] - Department of Dermatology [facility] Medicine [address] [place] [address], [address] [phone] documented in this encounter Visit Diagnoses Not on filedocumented in this encounter
--- OUTSIDE RECORDS SUMMARY | 2024-08-12 18:02 | XMS_ITS | Encounter Summary ---
Author Organization [facility] Healthcare Address [address] [place] [address] Care Team Providers Care Tobacco Cloth Reclaimer Name Role Phone Francia Juárez MD Primary Care Provider Francia Juárez MD Unavailable [phone] Jaylen Iglesias MD Unavailable [phone] Reason for Visit * Reason Comments Cerebrovascular Accident Possible stroke , this afternoon, she noticed that her mouth was not in the correct position Encounter Details Date Type Department Care Team (Late st Contact Info) Description 08/12/2024 6:00 PM CDT Office Visit [facility] at [address] [phone] Clemencia Gonsalez NP [address] [place] [address] [address] [place] [address] Arrived Social History Tobacco Use Types Packs/Day Years Used Date Smoking Tobacco: Never Smokeless Tobacco: Never Alcohol Use Standard Drinks/Week Comments [...] on file Legal Sex Female 1:49 AM MODELING AGENT Gender Identity Female 11/16/2021 11:10 AM CDT Sexual Orientation Not on file documented as of this encounter Last Filed Vital Signs Vital Sign Reading Time Taken Comments Blood Pressure 192/80 08/12/2024 5:26 PM CDT Pulse 74 08/12/2024 5:26 PM CDT Temperature - - Respiratory Rate 20 08/12/2024 5:26 PM CDT Oxygen Saturation 95% 08/12/2024 5:26 PM CDT Inhaled Oxygen Concentration - - Weight 61.7 kg (136 lb) 08/12/2024 5:26 PM CDT Height 160 cm (5' 2.99 ) 08/12/2024 5:26 PM CDT Body Mass Index 24.1 08/12/2024 5:26 PM CDT documented in this encounter Plan of Treatment Not on file documented as of this encounter Visit Diagnoses Not on filedocumented in this encounter Care Teams Tobacco Cloth Reclaimer Relationship Specialty Start Date End Date Francia Juárez MD [address] [place], [place] [address] [place] [address] PCP - General Internal Medicine 12/26/23 Francia Juárez MD [address] [place] [address] [address] [place] [address] 12/26/23 Jaylen Iglesias MD [address] [place] [address] Referring Physician Orthopedic Surgery 02/27/22 documented as of this encounter
--- OUTSIDE RECORDS SUMMARY | 2024-08-12 18:02 | XMS_ITS | Data Portability ---
Author Organization [facility] [employer] [facility], Main Office Address [address] [place] [address] Care Team Providers Care Table Runner Name Role Phone PATIENCE GOMEZ Primary Care Provider PATIENCE GOMEZ Referring Provider Assessment Encounter Date Assessment Date Assessment LastModified by Organization Details LastModified Time 11/22/2023 11/22/2023 The patient has severe primary osteoarthritis of the right knee joint moderately severe osteoarthritis left knee joint. We talked about treatment options she recently got her Celebrex refilled she is quite pleased with the results of taking the Celebrex she has been taking this chronically. Today her x-rays show stable osteoarthritic change no significant changes noted compared to x-rays done 2 years ago. She declined cortisone injections her knees feel pretty good today. She will continue with Celebrex 200 mg daily we will see her back as needed she can call at any time if she would like cortisone in the future. The patient voiced understanding and agrees with the above plan she will call for any further problems difficulties or questions. [email or web address] Not available 11/22/2023 16:08:37 Plan of Treatment Reminders Order Date Submit Date Provider Last Modified By Organization Details Last Modified Time Details Appointments None record ed. Lab None record ed. Referral None record ed. Procedures None record ed. Surgeries None record ed. Imaging XR, knee 024 11/22/19 24 [email or web address] [facility] [place], [facility], [place], [address], 16:10:40 Medication Orders None record ed. Patient TargetsNo targets recorded. Patient InstructionsNo instructions recorded. Reason for Referral None Reported. Results Created Date Observation Date Name Description Value Unit Range Abnormal Flag Note LastModifiedBy Organization Detail LastModifiedTime 12/30/19 22 XR, knee, 3 view No observ ation record ed. [id number] [facility] [place] [address], [place], [address], 07/05/2022 13:15:09 11/22/19 24 XR, knee No observ ation record ed. [email or web address] [facility] [place] [address], [place], [address], 11/22/2023 16:10:38 Result Notes None recorded. Problems Name Problem SNOMED Code Status Onset Date Resolution Date Notes Provider Name and Address Organization Details Recorded Time Bilateral osteoarthr itis of knees 3668198791181 07 Active 2021 Not Available [facility] 3 18:17:41 Osteoarthr itis of left knee joint 4939936581684 09 Active 2021 Not Available [facility] 3 18:17:41 Osteoarthr itis of right knee joint 8034442619202 00 Active 2021 Not Available [facility] 3 18:17:41 Osteoarthr itis 872998950 Active Not Available [facility] 3 18:17:41 Contractur e of palmar fascia 439607744 Active Not Available [facility] 3 18:17:41 Pain of right knee joint 7920852870679 00 Active 2021 Not Available [facility] 3 18:17:41 Problem Notes None recorded. Procedures Surgical History Date Name Laterality Status Provider Name and Address Organization Details Recorded Time Hysterectomy completed Not Available [facility] 07/05/2022 13:12:40 Imaging Results Imaging Date Name Status LastModified by Organiz ation Details LastModified Time 12/29/2021 XR, knee, 3 view completed [id number] [facility] [place] [address], [place], [address], 07/05/2022 13:15:09 11/22/2023 XR, knee completed [email or web address] [facility] [place] [address], [place], [address], 11/22/2023 16:10:38 Procedure Notes None recorded. Medical Equipment None Reported. Allergies Allergen ID Allergen Name Allergen Category Reaction Reaction Severity Criticality Documentation Date Start Date Code Code System Note Provider Name and Address Organization Details Recorded Time 70309 Substance with sulfonami de structure and antibacte rial mechanism of action (substanc e) medicatio n other Not available Not available 07/05/2022 51183 8003 SNOMED Not Available [facility] 13:15:04 Medications Name Sig Start Date Stop Date Status Note LastModified by Organization Details LastModified Time celecoxib 200 mg capsule Take 1 capsule every day by oral route. active Not Available Not Available No t Available prednisone 10 mg tablet PLEASE SEE ATTACHED FOR DETAILED DIRECTION S 11/21 completed Not Available Not Available Not Available atorvastati n 20 mg tablet TAKE 1 TABLET BY MOUTH EVERY DAY active Not Available Not Available No t Available clindamycin HCl 300 mg capsule 05/29 completed Not Available Not Available Not Available cetirizine 10 mg tablet TAKE 1 TABLET BY MOUTH EVERY DAY NEEDED FOR ALLERGY active Not Available Not Available No t Available azithromyci n 250 mg tablet TAKE 2 TABLETS BY MOUTH TODAY, THEN TAKE 1 TABLET DAILY FOR 4 DAYS 12/29 completed Not Available Not Available Not Available benzonatate 200 mg capsule TAKE 1 CAPSULE BY MOUTH THREE TIMES A DAY NEEDED FOR COUGH 12/29 completed Not Available Not Available Not Available meclizine 12.5 mg tablet 05/29 completed Not Available Not Available Not Available clopidogrel 75 mg tablet 05/29 completed Not Available Not Available Not Available ciprofloxac in 250 mg tablet 05/29 completed Not Available Not Available Not Available amlodipine 5 mg tablet TAKE 1 TABLET (5 MG TOTAL) BY MOUTH DAILY. active Not Available Not Available No t Available ciprofloxac in 500 mg tablet 05/29 completed Not Available Not Available Not Available sulfamethox azole 800 mg-trimetho prim 160 mg tablet 05/29 completed Not Available Not Available Not Available prednisone 10 mg tablets in a dose pack Take 1 tab by mouth, 3 times a day for 3 daysTake 1 tab by mouth 2 times a day for 2 daysTake 1 tab by mouth once a day for 1 day 11/21 completed Not Available Not Available Not Available amoxicillin 875 mg tablet 05/29 completed Not Available Not Available Not Available alprazolam 0.25 mg tablet TAKE 1 TABLET BY MOUTH DAILY NEEDED FOR ANXIETY. TAKE 30 MINUTES PRIOR TO ANY PROCEDURE S OR TESTS active Not Available Not Available No t Available Valium 5 mg tablet Take 1 tablet 20 mins prior to MRI, if needed, take 2nd if needed. 12/29 completed Not Available Not Available Not Available Kenalog 10 mg/mL suspension for injection In office injection administe red by the provider 12/29 completed [facility]: 0003- 0494- 20 Not Available Not Available Not Available cephalexin 500 mg capsule 05/29 completed Not Available Not Available Not Available fosinopril 40 mg tablet TAKE 1 TABLET BY MOUTH TWICE A DAY active Not Available Not Available No t Available triamterene 37.5 mg-hydrochl orothiazide 25 mg tablet 05/29 completed Not Available Not Available Not Available omeprazole 20 mg capsule,del ayed release TAKE 1 CAPSULE BY MOUTH EVERY DAY active Not Available Not Available No t Available diclofenac sodium 75 mg tablet,yancy yed release Take 1 tablet(s) 2 TIMES A DAY by oral route with food active Not Available Not Available No t Available pravastatin 20 mg tablet 12/29 completed Not Available Not Available Not Available mupirocin 2 % topical ointment 05/29 completed Not Available Not Available Not Available estradiol 0.01% (0.1 mg/gram) vaginal cream 11/21 completed Not Available Not Available Not Available fluticasone propionate 50 mcg/actuati on nasal spray,suspe nsion 12/29 completed Not Available Not Available Not Available nitrofurant oin monohydrate /macrocryst als 100 mg capsule 05/29 completed Not Available Not Available Not Available Calcium 600 2019 active Not Available Not Available Not Avai lable Vitamin D 2019 active Not Available Not Available Not Avai lable lidocaine (PF) 10 mg/mL (1 %) injection solution In office injection administe red by the provider 12/29 completed [facility]: 0409- 4276- 17 Not Available Not Available Not Available hydrochloro thiazide 12.5 mg tablet TAKE 1 TABLET BY MOUTH EVERY DAY active Not Available Not Available No t Available CoQ-10 2019 active Not Available Not Available Not Avai lable alpha lipoic acid 300 mg capsule Take by oral route. 12/29 completed Not Available Not Available Not Available Prevnar 13 (PF) 0.5 mL intramuscul ar syringe 05/29 completed Not Available Not Available Not Available ropivacaine (PF) 5 mg/mL (0.5 %) injection solution Take 20 mg by injection route. 11/21 completed Not Available Not Available Not Available Fluzone High-Dose 2014- (PF) 180 mcg/0.5 mL intramuscul ar syringe 05/29 completed Not Available Not Available Not Available Shingrix (PF) 50 mcg/0.5 mL intramuscul ar suspension, kit 12/29 completed Not Available Not Available Not Available Lotemax SM 0.38 % eye gel drops 12/29 completed Not Available Not Available Not Available Fluad 65yr up(PF)45 mcg(15 mcgx3)/0.5 mL intramuscul ar syringe TO BE ADMINISTE RED BY PHARMACIS T FOR IMMUNIZAT ION 12/29 completed Not Available Not Available Not Available Vitals Date Recorded Body mass index (BMI) Body height Body weight Provider Name and Address Organization Details Last Updated DateTime 12/29/2021 25.9 kg/m2 160.02 cm 16042.49 g Not Available [facility] 07/05/2022 13:12:57 Date Recorded Body mass index (BMI) Body height Body weight Provider Name and Address Organization Details Last Updated DateTime 01/26/2022 25.9 kg/m2 160.02 cm 61650.49 g Not Available [facility] 07/05/2022 13:12:57 Date Recorded Body mass index (BMI) Body height Body weight Provider Name and Address Organization Details Last Updated DateTime 02/23/2022 25.7 kg/m2 160.02 cm 26675.89 g Not Available [facility] 07/05/2022 13:12:57 Date Recorded Body height Body mass index (BMI) Body weight Provider Name and Address Organization Details Last Updated DateTime 11/22/2023 160.02 cm 23.4 kg/m2 92542.19 g Brittnee Coon [place] [facility] 11/22/2023 15:45:32 Social History None recorded. Functional Status None recorded. Mental Status None recorded. Family History Relationship Description Onset Age of this Age Resolved Age Notes LastModified by Organization Details LastModified Time Father Heart disease [id number] Not available 07/05/2022 13:12:40 Mother Heart disease [id number] Not available 07/05/2022 13:12:40 Medical History Condition Response ARTHRITIS Y HYPERTENSION Y Gynecological HistoryNo gynecological history recorded. Obstetrics History GPAL:G 0 P 0 0 0 0 Past Encounters Encounter ID Performer Location Encounter Start Date Encounter Closed Date Diagnosis/Indication Diagnosis SNOMED-CT Code Diagnosis ICD10 Code Diagnosis Note [id number] [facility] [place] [address] [place] [address] 12/29/2021 00:00:00 12/29/2021 14:42:34 [id number] [facility] [place] [address] [place] [address] 01/26/2022 00:00:00 01/26/2022 14:20:02 [id number] [facility] [place] [address] [place] [address] 02/23/2022 00:00:00 02/23/2022 11:55:15 [id number] ELEANOR Szymanski [facility] [place] [address] [place] [address] 11/22/2023 15:19:46 11/22/2023 16:02:55 Bilateral osteoarthritis of knees 4910896889 13496 M17.0 Osteoarthr itis of right knee joint 0175019380 06869 M17.11 Osteoarthr itis of left knee joint 1156209857 34424 M17.12 Health Concerns Section Related Observation LastModified by Organization Detai ls LastModified Time None Recorded Concern Status LastModified by Organization Details LastModified Time None Recorded Advance Directives Directive None Recorded Payers Encounter Date Sequence Insurance Name Policy Number Policy Roberts Covered Member ID Roberts Member ID Guarantor Name 11/22/2023 1 [place] M File [id number] Brittani File 11/22/2023 2 [facility] (MEDICARE SUPPLEMENT) Brittani File [id number] [place] File Notes Date Note Type Note Provider Name and Address Organization Details Recorded Time 12/29/2021 text/html KneeReported bypatient.Quality:ac elmer; throbbing; dull Severity:moderate Duration:continuous since onset Timing:chronic Alleviating Factors:sitting; lying down; rest; elevation Aggravating Factors:bending/squa tting; weight bearing Associated Symptoms:no weakness; no numbness; no tingling; no redness; no ecchymosis; no catching/locking; no popping/clicking; no buckling; no instability; no radiation down leg; no drainage; no fever; no chills; no weight loss; no change in bowel/bladder habits;swelling;warm th;grinding Not Available [employer] 12/29/2021 14:42:34 01/26/2022 text/html KneeReported bypatient.Quality:ac elmer; throbbing; dull Severity:moderate Duration:continuous since onset Timing:chronic Alleviating Factors:sitting; lying down; rest; elevation Aggravating Factors:bending/squa tting; weight bearing Associated Symptoms:no weakness; no numbness; no tingling; no redness; no ecchymosis; no catching/locking; no popping/clicking; no buckling; no instability; no radiation down leg; no drainage; no fever; no chills; no weight loss; no change in bowel/bladder habits;swelling;warm th;grinding Not Available [employer] 01/26/2022 14:20:02 02/23/2022 text/html KneeReported bypatient.Quality:ac elmer; throbbing; dull Severity:moderate Duration:continuous since onset Timing:chronic Alleviating Factors:sitting; lying down; rest; elevation Aggravating Factors:bending/squa tting; weight bearing Associated Symptoms:no weakness; no numbness; no tingling; no redness; no ecchymosis; no catching/locking; no popping/clicking; no buckling; no instability; no radiation down leg; no drainage; no fever; no chills; no weight loss; no change in bowel/bladder habits;swelling;warm th;grinding Not Available [employer] 02/23/2022 11:55:15 11/22/2023 text/html patient returns she has a history of primary osteoarthritis both knees right worse than left. She is on chronic Celebrex she has had previous cortisone injections she states these really did not work very well but the Celebrex gives her excellent relief. She states she really does not have much pain. We have not seen her for nearly 2 years she was wanting refills on her Celebrex she was advised that we need to at least check in with her every so often if we are going to continue to prescribe the medication. She comes in today for new x-rays and recheck of both knees states the knees are feeling pretty good. She goes about her daily activities and does very well she just recently turned 88 years of age and is still quite active and gets around very well. She has not interested in any sort of surgical intervention at her age + she really does not have significant discomfort occasionally the knee will flare up a bit but overall does very well. She comes in today for recheck and evaluation of both knees. She has severe primary osteoarthritis of the right knee moderately severe on the left. A new past medical history sheet was reviewed and signed on the intake sheet of today's date drug allergies current medications family social history previous surgical history 10 point review of systems was reviewed and discussed in detail today with the patient. ELEANOR Szymanski [address] [facility], [facility] [address], [place], [address], [place] 11/22/2023 16:11:16 OBGyn Episode No OBEpisode recorded.
--- OUTSIDE RECORDS SUMMARY | 2024-08-12 18:02 | XMS_ITS | Continuity of Care Document ---
Author Organization [facility] Address [address] [address] [place] [address] Phone Care Team Providers Care Solar Technician Name Role Phone [facility] Unavailable Unavail able [employer] Unavailable Unavailable Procedures Procedure Date TF Polycarb Sphcyl [place] To +/-4d .12-2d Office/outpatient Visit, Est Vision Svcs Frames Purchases TF Plastic Sphcyl [place] To +/-4d .12-2d Anti-reflective Coating Tint Photochromatic, Polycarb 8 Lens-Index>1.66Plas;>1.80Glas 8 Frames Deluxe Post-op Follow-up Visit Refraction Post-op Follow-up Visit Remove Cataract, Insert Lens Limbal Relaxing Incision Post-op Follow-up Visit [facility] Post-op Follow-up Visit Remove Cataract, Insert Lens Limbal Relaxing Incision Eye Exam & Treatment [facility] Eye Exam & Treatment Visual Functional Status Assessed Refraction Advance Directives Directive Yes / No Effective Date File Name No Information Encounters Encounter Description Practice Location Reason(s) For Visit Diagnoses Date Provider Providers Copied on Encounter [facility], [address] [place] [address] [address], [place], [place], [id number], [place] tel:[phone] [facility] No Information 2-201 0 [facility] . [address] [facility], [address], [place], [place], [id number], [place]. tel:[phone] Referring Provider: Roberto Ball, [facility] [address], [place], [address]. tel:[phone] g Provider: [employer], [address] [place], [address]. tel:[phone] Office/outpat ient Visit, [facility], [address] [place] [address] [address], [place], [place], [id number], [place] tel:[phone] [facility] No Information 3-201 0 Wally Mejia. [address] [place] [address] , [address], [place], [address], [place]. tel:[phone] [facility], [address] [place] [address] [address], [place], [place], [id number], [place] tel:[phone] [facility] No Information Dec-0 9-200 8 [facility] . [address] [facility], [address], [place], [place], [address], [place]. tel:[phone] Referring Provider: Roberto Ball, [facility] [address], [place], [address]. tel:[phone] g Provider: Cande Luna, [address] [place], [address]. tel:[phone] [facility], [address], [place], [place], [id number], [place] tel:[phone] [facility] No Information Dec-0 5-200 8 Hagen OD Nick. [address] [place] [address] , [address], [place], [address], [place]. tel:[phone] Referring Provider: Roberto Ball, [address], [place], [place], [facility]. tel:[phone] [facility], [address], [place], [place], [id number], [place] tel:[phone] [facility] No Information Nov-1 9-200 8 Wally Mejia. [address] [facility] , [address], [place], [place], [facility], [place]. tel:[phone] [facility], [address], [place], [place], [id number], [place] tel:[phone] [facility] No Information Nov-1 8-200 8 Wally Mejia. [address] [facility] , [address], [place], [place], [facility], [place]. tel:[phone] [facility], [address] [place] [address] [address], [place], [place], [id number], [place] tel:[phone] [facility] No Information Nov-0 5-200 8 Wally Mejia. [address] [place], [place] [address]ate [address] , [address], [place], [facility], [place]. tel:[phone] Referring Provider: Roberto Ball, [facility] [address], [place], [facility]. tel:[phone] [facility], [address] [place] [address] [address], [place], [place], [id number], [place] tel:[phone] [facility] No Information Oct-2 2-200 8 Wally Mejia. [facility] , [address], [place], [facility], [place]. tel:[phone] [facility], [address], [place], [place], [id number], [place] tel:[phone] [facility] No Information Oct-2 1-200 8 Wally Mejia. [address] , [address], [place], [facility], . tel:[phone] [facility], [address] [place] [address] [address], [place], [place], [id number], tel:[phone] [facility] No Information Oct-0 6-200 8 Wally Mejia. [facility] , [address], [place], [facility], . tel:[phone] Referring Provider: Roberto Ball [address] [place] [address] [address], [place], [place], [facility]. tel:[phone] [facility], [address] [place], [place] [address] [address], [place], [place], [id number], tel:[phone] [facility] No Information Oct-0 3-200 7 Wally Mejia. [address] [place] [address] , [address], [place], [place], [facility], . tel:[phone] Family History Family Member Type Diagnosis Age At Onset No Information Payers Payer name Insurance type Covered green party ID Authoriza tion(s) No Information Social History Type Description Quantity Date Captured Comments Sex Female Smoking Status No Information Chief Complaint And Reason For Visit No Information Reason For Referral Reason For Referral No Information History Of Present Illness Encounter Date Complaint History Of Prese nt Illness No Information Functional Status Date Functional Assessmen t No Information Instructions Date Instruction Additional Infor mation No Information Assessments Type Assessment Date No Information Patient Care Teams Name Effective Dates (start - stop) Status Members No Information
--- OUTSIDE RECORDS SUMMARY | 2024-08-12 18:02 | XMS_ITS | Encounter Summary ---
Author Organization [facility] Healthcare Address [address] [place] [address] Care Team Providers Care Customer Strategy Manager Name Role Phone Francia Juárez MD Primary Care Provider Francia Juárez MD Unavailable [phone] Jaylen Iglesias MD Unavailable [phone] Reason for Visit * Reason Onset Date Comments Hypertension 08/12/2024 Encounter Details Date Type Department Care Team (Late st Contact Info) Description 08/12/2024 Nurse Triage [facility] [address] [facility] [address] [place] [address] Francia Juárez MD [address] [place] [address] [address] [place], [place] [id number] Social History Tobacco Use Types Packs/Day Years [...] on file 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 The patient is there with her. The patient told her that her face feels funny. When she smiles the left side of her mouth is higher than the right. She went to an EMS station. Paramedics checked her over. BP 150/70. They told her to follow up with her PCP. They thought it might be [place]'s [place]. No problems swallowing. She is chewing without problems. Symptoms began at around 1330 today. Nothing like this has happened to her before. What do you advise? Secure chat with operations director provider who recommends an UCC or CC or PCP. I scheduled a visit this evening at the [facility]. Reason for Disposition Neurologic deficit that was brief (now gone), ANY of the following: * Weakness of the face, arm, orleg on one side of the body * Numbness of the face, arm, or leg on one side of the body * Loss of speech or garbled speech Protocols used: Neurologic [id number] * Telephone Encounter - Brittany Wolfe RN - 08/12/2024 4:47 PM CDT Regarding: freezing on left side and BP 150/70 ----- Message from Naheed Ball sent at 08/12/2024 4:36 PM CDT ----- Symptom Based Call Chief Complaint(s): freezing on left side and BP 150/70 Duration: today What type of symptom(s) is the patient experiencing? Red Flag. Is the patient concerned they are experiencing a medical emergency requiring an ambulance? No Additional Comments: Fire station confirmed no stroke, but gave BP reading Does message need to be routed? Yes-Action Needed documented in this encounter Plan of Treatment Not on file documented as of this encounter Visit Diagnoses Not on filedocumented in this encounter Care Teams Customer Strategy Manager Relationship Specialty Start Date End Date Francia Juárez MD [address] [place] [address] [address] [place] [address] PCP - General Internal Medicine 12/26/23 Francia Juárez MD [address] [place] [address] [address] [place] [address] 12/26/23 Jaylen Iglesias MD [address] [place] [address] Referring Physician Orthopedic Surgery 02/27/22 documented as of this encounter
[2024-08-12 18:06] VITALS: BP 170/74; PULSE 75; RESP 16; TEMP 36.9; O2SAT 96
--- NOTE | 2024-08-12 18:16 | ED.GENADULT ---
HPI - General Adult General Chief complaint: Unspecified <Lauren Shepherd PA-C - Last Filed: 08/15/24 18:09> Stated complaint: sent from urgent care for ct <Lauren Shepherd PA-C - Last Filed: 08/15/24 18:09> Time Seen by Provider: 08/12/24 18:16 <Lauren Shepherd PA-C - Last Filed: 08/15/24 18:09> Focused HPI: This is a 88 year old female that presents to the ER for facial droop. Reports she noticed this around 1:30 this afternoon. Reports she felt like her face looked normal last around 10 this morning. She went to the [facility] initially to be evaluated. She then called her PCP who recommended she go to [facility] urgent care who sent them to the ER. No other focal numbness, weakness. GENERAL: Elderly, well-nourished, and in no acute distress. HEAD: Normocephalic, atraumatic. CHEST: Clear to auscultation. ?No respiratory distress. HEART: Regular rate and rhythm.? NEURO: ?Alert and oriented x3. Mild right sided facial droop. Strength equal in bilateral upper and lower extremities (5/5) Patient screened in triage and initial orders placed.? ?Additional care and disposition to be based upon?diagnostic testing and treatment. <Lauren Shepherd PA-C - Last Filed: 08/15/24 18:09> Focused HPI: This is a 88 year old female that presents to the ER for facial droop. Reports she noticed this around 1:30 this afternoon. Reports she felt like her face looked normal last around 10 this morning. She went to the fire station initially to be evaluated. She then called her PCP who recommended she go to [facility] urgent care who sent them to the ER. No other focal numbness, weakness. GENERAL: Elderly, well-nourished, and in no acute distress. HEAD: Normocephalic, atraumatic. CHEST: Clear to auscultation. ?No respiratory distress. HEART: Regular rate and rhythm.? NEURO: ?Alert and oriented x3. Mild right sided facial droop. Strength equal in bilateral upper and lower extremities (5/5) Patient screened in triage and initial orders placed.? ?Additional care and disposition to be based upon?diagnostic testing and treatment. <Lor Puente PA-C - Last Filed: 08/12/24 23:51> Source: patient <Lor N. TANMAY Puente - Last Filed: 08/12/24 23:51> Mode of arrival: ambulatory <Lor Puente PA-C - Last Filed: 08/12/24 23:51> Limitations: no limitations <Lor Puente PA-C - Last Filed: 08/12/24 23:51> History of Present Illness HPI narrative: Agree with above HPI. Patient denies any changes in sensation throughout her face, arms or legs. Did have a slight right ear ache last night. Denies vision changes, headache, slurred speech, confusion, numbness or weakness of arm or leg. Patient sees a neurologist, Dr. Marco Muse with [facility]. States she has been told she has a carotid artery blockage in the past and receives yearly routine imaging. Takes ASA 81mg daily. No other anticoagulation. <Lor Puente PA-C - Last Filed: 08/12/24 23:51> Related Data Home medications: Home Medications ?Medication ?Instructions ?Recorded ?Confirmed ?Last Taken ?Type alpha lipoic acid 300 mg capsule 300 mg PO BID 08/13/24 08/13/24 Unknown History amlodipine 5 mg tablet 5 mg PO DAILY 08/13/24 08/13/24 Unknown History ascorbic acid (vitamin C) 500 mg 500 mg PO BID 08/13/24 08/13/24 Unknown History tablet (C-500) aspirin 81 mg tablet,delayed 81 mg PO DAILY 08/13/24 08/13/24 Unknown History release (Danii Low Dose Aspirin) atorvastatin 20 mg tablet 20 mg PO QPM 08/13/24 08/13/24 Unknown History calcium 600 mg (as 1 tablet PO BID 08/13/24 08/13/24 Unknown History carbonate)-vitamin D3 10 mcg (400 unit) tablet (Calcium 600 + D(3)) celecoxib 200 mg capsule 200 mg PO Q24H 08/13/24 08/13/24 Unknown History coenzyme Q10 100 mg capsule (Co 400 mg PO BID 08/13/24 08/13/24 Unknown History Q-10) ergocalciferol (vitamin D2) 50 mcg 50 mcg PO DAILY 08/13/24 08/13/24 Unknown History (2,000 unit) capsule fosinopril 40 mg tablet 40 mg PO BID 08/13/24 08/13/24 Unknown History hydrochlorothiazide 12.5 mg tablet 12.5 mg PO DAILY 08/13/24 08/13/24 Unknown History omeprazole 20 mg capsule,delayed 20 mg PO DAILY 08/13/24 08/13/24 Unknown History release <Lauren Shepherd PA-C - Last Filed: 08/15/24 18:09> Allergies/adverse reactions: Allergies Allergy/AdvReac Type Severity Reaction Status Date / Time Sulfa (Sulfonamide Allergy Unknown Verified 03/06/16 10:25 Antibiotics) <Lauren Shepherd PA-C - Last Filed: 08/15/24 18:09> Review of Systems Review of Systems: All systems reviewed & are unremarkable except as noted in HPI. <Lor Puente PA-C - Last Filed: 08/12/24 23:51> All systems reviewed & are unremarkable except as noted in HPI and below <Lor Puente PA-C - Last Filed: 08/12/24 23:51> [facility] Past Medical History Medical History: Medical History History of hyperlipidemia History of hypertension <Lauren Shepherd PA-C - Last Filed: 08/15/24 18:09> Family History Family History: Family History Father Family history of coronary artery disease Patient's father is Other Family history of arthritis Family history of cardiovascular disease <Lauren Shepherd PA-C - Last Filed: 08/15/24 18:09> Social History Social History: Social History Smoking status: Never smoker Second hand tobacco smoke exposure: No Alcohol intake: never Substance use: never Substance use type: does not use Do You Feel Safe in your Home?: Yes Lack of Transportation: No Lack of Food: Never True Current Housing: I Have Housing Concerned About Future Housing: No Difficulty Paying Gas/Electric Bills: No Difficulty Paying for Meds: No Currently Unemployed: No Education: High School Diploma/GED Difficulty w/ Childcare or Family Care: No Gender identity (if verbalized by the patient): Female Spiritual care concerns: No <Lauren Shepherd PA-C - Last Filed: 08/15/24 18:09> Exam Narrative: GENERAL: Eldelry but well appearing, well-nourished, non-toxic, in no acute distress. HEAD: Normocephalic, atraumatic. EYES: PERRL/EOMI, conjunctivae clear bilaterally. No nystagmus. TMs clear bilaterally, no cerumen impaction NECK: Supple. No meningeal signs. RESPIRATORY: Airway patent, respirations nonlabored. Clear to auscultation bilaterally, no rales, rhonchi, wheezing. CARDIOVASCULAR: Regular rate and rhythm without murmurs, rubs, or gallops. Peripheral pulses 2+ and equal bilaterally. MUSCULOSKELETAL: Moves all extremities. No gross deformities. SKIN: Warm, dry, normal color. No rashes. NEURO: A&O X3. Speech clear. Follows commands. Slight droop on R side of face, asymmetry of nasolabial fold with smiling, able to wrinkle forehead equally bilaterally. Some asymmetry with puffing out cheeks, difficulty on R side. Able to close eyes fully bilaterally. Sensation grossly intact. Steady gait. No ataxic movements. Strength 5/5 in upper and lower extremities bilaterally. Lpyg-lm-eglf and haqxxh-ex-suhr testing intact bilaterally. No pronator drift. Equal hat cleaner strength bilaterally. PSYCHIATRIC: Appropriate mood and affect. Normal interaction. <Lor Puente PA-C - Last Filed: 08/12/24 23:51> Course Vital Signs Vital signs: Vital Signs Temperature 98.5 F 08/12/24 18:06 Pulse Rate 75 08/12/24 18:06 Respiratory Rate 16 08/12/24 18:06 Blood Pressure 170/74 H 08/12/24 18:06 Pulse Oximetry 96 08/12/24 18:06 Temperature 98.0 F 08/13/24 12:00 Pulse Rate 63 08/13/24 12:35 Respiratory Rate 18 08/13/24 12:00 Blood Pressure 142/71 H 08/13/24 12:00 Pulse Oximetry 96 08/13/24 12:00 Oxygen Delivery Room Air 08/13/24 10:44 <Lauren Shepherd PA-C - Last Filed: 08/15/24 18:09> Vital Signs Temperature 98.5 F 08/12/24 18:06 Pulse Rate 75 08/12/24 18:06 Respiratory Rate 16 08/12/24 18:06 Blood Pressure 170/74 H 08/12/24 18:06 Pulse Oximetry 96 08/12/24 18:06 Temperature 98.0 F 08/13/24 12:00 Pulse Rate 63 08/13/24 12:35 Respiratory Rate 18 08/13/24 12:00 Blood Pressure 142/71 H 08/13/24 12:00 Pulse Oximetry 96 08/13/24 12:00 Oxygen Delivery Room Air 08/13/24 10:44 <Lor Puente PA-C - Last Filed: 08/12/24 23:51> Vital Signs Temperature 98.5 F 08/12/24 18:06 Pulse Rate 75 08/12/24 18:06 Respiratory Rate 16 08/12/24 18:06 Blood Pressure 170/74 H 08/12/24 18:06 Pulse Oximetry 96 08/12/24 18:06 Temperature 98.0 F 08/13/24 12:00 Pulse Rate 63 08/13/24 12:35 Respiratory Rate 18 08/13/24 12:00 Blood Pressure 142/71 H 08/13/24 12:00 Pulse Oximetry 96 08/13/24 12:00 Oxygen Delivery Room Air 08/13/24 10:44 <Mj Barriga MD - Last Filed: 08/13/24 07:31> Medical Decision Making MDM Narrative Medical decision making narrative: Patient presented to ED with right facial droop that began today, 1st noticed around 130 p.m., official last known well 10:00 a.m.. No other significant symptoms or neurologic complaints. She does have a right-sided facial droop/facial asymmetry on exam, otherwise appears neurologically intact. No cerebellar signs. Normal tfarbu-cy-qdcz and heel test and testing. No ataxia or aphasia. Vital signs are stable upon arrival. She is otherwise in no acute distress. CT brain non con negative. Laboratory studies without acute findings. No leukocytosis. Minimal anemia. Stable kidney function. EKG with NSR, no significant ectopy. Troponin undetectable. 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 Discussed case with Dr. Johnson, neurology @ [facility] (affiliate of patient's neurologist - Dr. Muse), recommended MRI, ECHO. Carotid stenosis does not require acute intervention at this time. Dual antiplatelets [id number]. No indication for transfer. Discussed case with Dr. Pompa, neurology here, agreed with plan for MRI/ECHO/dual antiplatelets, will consult. Discussed case with Dr. Lilly, hospitalist, accepted patient for admission. Patient in agreement with plan and admission. Patient started on aspirin Plavix, high-dose atorvastatin. <Lor Puente PA-C - Last Filed: 08/12/24 23:51> Medical Records Medical records reviewed: Yes I reviewed the external patient's medical records. <TANMAY Morris Last Filed: 08/12/24 23:51> Vital Signs Vital Signs: Vital Signs Temperature 98.5 F 08/12/24 18:06 Pulse Rate 75 08/12/24 18:06 Respiratory Rate 16 08/12/24 18:06 Blood Pressure 170/74 H 08/12/24 18:06 Pulse Oximetry 96 08/12/24 18:06 Temperature 98.0 F 08/13/24 12:00 Pulse Rate 63 08/13/24 12:35 Respiratory Rate 18 08/13/24 12:00 Blood Pressure 142/71 H 08/13/24 12:00 Pulse Oximetry 96 08/13/24 12:00 Oxygen Delivery Room Air 08/13/24 10:44 <Lauren Shepherd PA-C - Last Filed: 08/15/24 18:09> Vital Signs Temperature 98.5 F 08/12/24 18:06 Pulse Rate 75 08/12/24 18:06 Respiratory Rate 16 08/12/24 18:06 Blood Pressure 170/74 H 08/12/24 18:06 Pulse Oximetry 96 08/12/24 18:06 Temperature 98.0 F 08/13/24 12:00 Pulse Rate 63 08/13/24 12:35 Respiratory Rate 18 08/13/24 12:00 Blood Pressure 142/71 H 08/13/24 12:00 Pulse Oximetry 96 08/13/24 12:00 Oxygen Delivery Room Air 08/13/24 10:44 <Lor Puente PA-C - Last Filed: 08/12/24 23:51> Vital Signs Temperature 98.5 F 08/12/24 18:06 Pulse Rate 75 08/12/24 18:06 Respiratory Rate 16 08/12/24 18:06 Blood Pressure 170/74 H 08/12/24 18:06 Pulse Oximetry 96 08/12/24 18:06 Temperature 98.0 F 08/13/24 12:00 Pulse Rate 63 08/13/24 12:35 Respiratory Rate 18 08/13/24 12:00 Blood Pressure 142/71 H 08/13/24 12:00 Pulse Oximetry 96 08/13/24 12:00 Oxygen Delivery Room Air 08/13/24 10:44 <Mj Barriga MD - Last Filed: 08/13/24 07:31> Lab Data Lab results reviewed: Yes I reviewed the patient's lab results. <Lor Puente PA-C - Last Filed: 08/12/24 23:51> Result diagrams: 08/13/24 05:58 08/13/24 05:58 <Lauren Shepherd PA-C - Last Filed: 08/15/24 18:09> Labs: Lab Results 08/12/24 08/12/24 Range/Units 18:57 19:06 WBC 9.3 (4.5-10.0) K/mm3 RBC 3.87 L (4.2-5.4) M/mm3 Hgb 11.6 L (12.0-15.0) g/dL Hct 36.5 L (37.0-47.0) % MCV 94.3 (80-100) fl MCH 30.0 (26-34) pg MCHC 31.8 L (32-36) g/dl RDW 12.6 (11.5-14.5) % Plt Count 203 (150-375) k/mm3 MPV 10.9 H (7.4-10.4) fl Immature Gran % (Auto) 0.3 (0-0.5) % Neut % (Auto) 61.1 (45.5-73.1) % Lymph % (Auto) 25.1 (18.3-44.2) % [place] % (Auto) 8.3 (2.6-8.5) % Eos % (Auto) 4.1 (0-4.4) % Baso % (Auto) 1.1 (0.2-1.2) % Lymph # (Auto) 2.33 (0.9-3.2) K/mm3 [place] # (Auto) 0.8 H (0.1-0.6) K/mm3 Eos # (Auto) 0.4 H (0-0.3) K/mm3 Baso # (Auto) 0.1 (0.0-0.1) K/mm3 Abs Immat Gran (auto) 0.03 (0.00-0.031) K/mm3 Absolute Neuts (auto) 5.7 (1.3-6.7) K/mm3 Absolute Nucleated RBC 0.000 (0.0-0.012) K/mm3 Nucleated RBC % 0.0 (0.0-0.2) % PT 13.2 (11.1-14.7) Seconds INR 1.0 APTT 24.9 (22.3-36.8) Seconds Sodium 139 (137-145) mmol/L Potassium 4.0 (3.4-5.0) mmol/L Chloride 104 (98-107) mmol/L Carbon Dioxide 26 (22-30) mmol/L Anion Gap 9 (4-12) mmol/L BUN 27 H (7-17) mg/dL Creatinine 1.01 H (0.7-1.0) mg/dL Estim Creat Clear Calc 28 ml/min Estimated GFR 52 L (59 - ) Glucose 102 (65-110) mg/dL POC Capillary Glucose 98 (65-105) mg/dl Calcium 9.4 (8.4-10.2) mg/dL Total Bilirubin 0.8 (0.2-1.3) mg/dL AST 26 (14-36) U/L ALT 27 (6-35) U/L Alkaline Phosphatase 103 (38-126) U/L Troponin I < 0.012 (0.000-0.034) ng/mL Total Protein 7.0 (6.3-8.2) g/dL Albumin 4.4 (3.5-5.1) g/dL <Lauren Shepherd PA-C - Last Filed: 08/15/24 18:09> Lab Results 08/12/24 08/12/24 Range/Units 18:57 19:06 WBC 9.3 (4.5-10.0) K/mm3 RBC 3.87 L (4.2-5.4) M/mm3 Hgb 11.6 L (12.0-15.0) g/dL Hct 36.5 L (37.0-47.0) % MCV 94.3 (80-100) fl MCH 30.0 (26-34) pg MCHC 31.8 L (32-36) g/dl RDW 12.6 (11.5-14.5) % Plt Count 203 (150-375) k/mm3 MPV 10.9 H (7.4-10.4) fl Immature Gran % (Auto) 0.3 (0-0.5) % Neut % (Auto) 61.1 (45.5-73.1) % Lymph % (Auto) 25.1 (18.3-44.2) % [place] % (Auto) 8.3 (2.6-8.5) % Eos % (Auto) 4.1 (0-4.4) % Baso % (Auto) 1.1 (0.2-1.2) % Lymph # (Auto) 2.33 (0.9-3.2) K/mm3 [place] # (Auto) 0.8 H (0.1-0.6) K/mm3 Eos # (Auto) 0.4 H (0-0.3) K/mm3 Baso # (Auto) 0.1 (0.0-0.1) K/mm3 Abs Immat Gran (auto) 0.03 (0.00-0.031) K/mm3 Absolute Neuts (auto) 5.7 (1.3-6.7) K/mm3 Absolute Nucleated RBC 0.000 (0.0-0.012) K/mm3 Nucleated RBC % 0.0 (0.0-0.2) % PT 13.2 (11.1-14.7) Seconds INR 1.0 APTT 24.9 (22.3-36.8) Seconds Sodium 139 (137-145) mmol/L Potassium 4.0 (3.4-5.0) mmol/L Chloride 104 (98-107) mmol/L Carbon Dioxide 26 (22-30) mmol/L Anion Gap 9 (4-12) mmol/L BUN 27 H (7-17) mg/dL Creatinine 1.01 H (0.7-1.0) mg/dL Estim Creat Clear Calc 28 ml/min Estimated GFR 52 L (59 - ) Glucose 102 (65-110) mg/dL POC Capillary Glucose 98 (65-105) mg/dl Calcium 9.4 (8.4-10.2) mg/dL Total Bilirubin 0.8 (0.2-1.3) mg/dL AST 26 (14-36) U/L ALT 27 (6-35) U/L Alkaline Phosphatase 103 (38-126) U/L Troponin I < 0.012 (0.000-0.034) ng/mL Total Protein 7.0 (6.3-8.2) g/dL Albumin 4.4 (3.5-5.1) g/dL <Lor Puente PA-C - Last Filed: 08/12/24 23:51> Lab Results 08/12/24 08/12/24 Range/Units 18:57 19:06 WBC 9.3 (4.5-10.0) K/mm3 RBC 3.87 L (4.2-5.4) M/mm3 Hgb 11.6 L (12.0-15.0) g/dL Hct 36.5 L (37.0-47.0) % MCV 94.3 (80-100) fl MCH 30.0 (26-34) pg MCHC 31.8 L (32-36) g/dl RDW 12.6 (11.5-14.5) % Plt Count 203 (150-375) k/mm3 MPV 10.9 H (7.4-10.4) fl Immature Gran % (Auto) 0.3 (0-0.5) % Neut % (Auto) 61.1 (45.5-73.1) % Lymph % (Auto) 25.1 (18.3-44.2) % [place] % (Auto) 8.3 (2.6-8.5) % Eos % (Auto) 4.1 (0-4.4) % Baso % (Auto) 1.1 (0.2-1.2) % Lymph # (Auto) 2.33 (0.9-3.2) K/mm3 [place] # (Auto) 0.8 H (0.1-0.6) K/mm3 Eos # (Auto) 0.4 H (0-0.3) K/mm3 Baso # (Auto) 0.1 (0.0-0.1) K/mm3 Abs Immat Gran (auto) 0.03 (0.00-0.031) K/mm3 Absolute Neuts (auto) 5.7 (1.3-6.7) K/mm3 Absolute Nucleated RBC 0.000 (0.0-0.012) K/mm3 Nucleated RBC % 0.0 (0.0-0.2) % PT 13.2 (11.1-14.7) Seconds INR 1.0 APTT 24.9 (22.3-36.8) Seconds Sodium 139 (137-145) mmol/L Potassium 4.0 (3.4-5.0) mmol/L Chloride 104 (98-107) mmol/L Carbon Dioxide 26 (22-30) mmol/L Anion Gap 9 (4-12) mmol/L BUN 27 H (7-17) mg/dL Creatinine 1.01 H (0.7-1.0) mg/dL Estim Creat Clear Calc 28 ml/min Estimated GFR 52 L (59 - ) Glucose 102 (65-110) mg/dL POC Capillary Glucose 98 (65-105) mg/dl Calcium 9.4 (8.4-10.2) mg/dL Total Bilirubin 0.8 (0.2-1.3) mg/dL AST 26 (14-36) U/L ALT 27 (6-35) U/L Alkaline Phosphatase 103 (38-126) U/L Troponin I < 0.012 (0.000-0.034) ng/mL Total Protein 7.0 (6.3-8.2) g/dL Albumin 4.4 (3.5-5.1) g/dL <Mj Barriga MD - Last Filed: 08/13/24 07:31> Imaging Data Attestation: I personally reviewed and interpreted this imaging study as follows: <Lor Puente PA-C - Last Filed: 08/12/24 23:51> Radiologist's impression: ITS Impressions Head CT 08/12/24 18:47 Impression: No acute intracranial hemorrhage or suspicious mass effect. Of note, this was not designated as a code stroke evaluation Head/Neck CTA 08/12/24 20:03 IMPRESSION: Percent stenosis per NASCET criteria is 0% on the right and 30% on the left. 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 No large vessel occlusion. <Lor Puente PA-C - Last Filed: 08/12/24 23:51> ECG Data EKG #1: Attestation: I personally reviewed and interpreted this ECG as follows: <Lor Puente PA-C - Last Filed: 08/12/24 23:51> ECG completion date: 08/12/24 <TANMAY Morris Last Filed: 08/12/24 23:51> ECG completion time: 19:34 <Lor Puente PA-C - Last Filed: 08/12/24 23:51> EKG Interpretation: normal rate (71), sinus rhythm and no ST changes <Lor Puente PA-C - Last Filed: 08/12/24 23:51> Critical Care Time Critical Care Time Critical Care Time: No <Lauren Shepherd PA-C - Last Filed: 08/15/24 18:09> Discharge Plan Discharge Clinical Impression: Acute CVA (cerebrovascular accident), Facial droop <TANMAY Neal Last Filed: 08/15/24 18:09> Patient Disposition: Still a Patient <TANMAY Neal Last Filed: 08/15/24 18:09> Condition: Stable <TANMAY Neal Last Filed: 08/15/24 18:09> Attestation Supervising Provider Attestation This visit was performed by both a physician and an APC (ELEANOR Puente). I performed all aspects of the MDM as documented. <Mj Barriga MD - Last Filed: 08/13/24 07:31>
--- NOTE | 2024-08-12 18:19 | ECG_ITS ---
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
--- OUTSIDE RECORDS SUMMARY | 2024-08-12 18:39 | XMS_ITS | Encounter Summary ---
Author Organization [facility] Healthcare Address [address] [place] [address] Care Team Providers Care Early Childhood Teacher Name Role Phone Francia Juárez MD Primary Care Provider Francia Juárez MD Unavailable [phone] Jaylen Iglesias MD Unavailable [phone] Reason for Visit * Reason Comments Cerebrovascular Accident Possible stroke , this afternoon, she noticed that her mouth was not in the correct position Encounter Details Date Type Department Care Team (Late st Contact Info) Description 08/12/2024 6:00 PM CDT Office Visit [facility] at [address] [address] Clemencia Gonsalez NP [address] [place] [address] [address] [place] [address] Facial asymmetry (Primary Dx); Elevated blood pressure reading Social History Tobacco Use Types Packs/Day Years [...] on file 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 Gender Identity Female 11/16/2021 11:10 AM CDT [...] documented as of this encounter Visit Diagnoses Diagnosis 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, face, and jaw Elevated blood pressure reading Elevated blood pressure reading without diagnosis of hypertension documented in this encounter Care Teams Early Childhood Teacher Relationship Specialty Start Date End Date Francia Juárez MD [address] [place] [address] [address] [place] [address] PCP - General Internal Medicine 12/26/23 Francia Juárez MD [address] [place] [address] [address] [place] [address] 12/26/23 Jaylen Iglesias MD [address] [place] [id number] Referring Physician Orthopedic Surgery 02/27/22 documented as of this encounter
--- OUTSIDE RECORDS SUMMARY | 2024-08-12 18:39 | XMS_ITS | Continuity of Care Document ---
Author Organization [facility] Address [address] [place] [address] Phone Care Team Providers Care Erp Manager Name Role Phone [facility] Unavailable Unavail able Ada Painting Unavailable Unavailable Procedures Procedure Date TF Polycarb Sphcyl Early To +/-4d .12-2d Office/outpatient Visit, Est [facility] Svcs Frames Purchases TF Plastic Sphcyl Early To +/-4d .12-2d Anti-reflective Coating Tint Photochromatic, [...] Diagnoses Date Provider Providers Copied on Encounter [facility], [address] [place] [address] [address], [place], [place], [address], [place] tel:[phone] [facility] No Information 2-201 0 [facility] . [address] [facility], [address], [place], [place], [address], [place]. tel:[phone] Referring Provider: Roberto Ball, [facility] [address], [place], [address]. tel:[phone] g Provider: Ada Painting, [address] [place], [address]. tel:[phone] Office/outpat ient Visit, [facility], [address] [place] [address] [address], [place], [place], [address], [place] tel:[phone] [facility] No Information 3-201 0 Wally Mejia. [address] [place] [address] , [address], [place], [address], [place]. tel:[phone] [facility], [address] [place] [address] [address], [place], [place], [address], [place] tel:[phone] [facility] No Information Dec-0 9-200 8 [facility] . [address] [facility], [address], [place], [place], [address], [place]. tel:[phone] Referring Provider: Roberto Ball, [facility] [address], [place], [address]. tel:[phone] g Provider: Cande Luna, [address] [place], [address]. tel:[phone] [facility], [address], [place], [place], [address], [place] tel:[phone] [facility] No Information Dec-0 5-200 8 Hagen OD Nick. [address] [place] [address] , [address], [place], [address], [place]. tel:[phone] Referring Provider: Roberto Ball, [address], [place], [place], [facility]. tel:[phone] [facility], [address], [place], [place], [address], [place] tel:[phone] [facility] No Information Nov-1 9-200 8 Wally Mejia. [address] [facility] , [address], [place], [facility], [place]. tel:[phone] [facility], [address], [place], [place], [address], [place] tel:[phone] [facility] No Information Nov-1 8-200 8 Wally Mejia. [address] [facility] , [address], [place], [facility], [place]. tel:[phone] [facility], [address] [place] [address] [address], [place], [place], [address], [place] tel:[phone] [facility] No Information Nov-0 5-200 8 Wally Mejia. [address] [place], [place] [address]ate Center , [address], [place], [facility], [place]. tel:[phone] Referring Provider: Roberto Ball, [facility] [address], [place], [facility]. tel:[phone] [facility], [address] [place] [address] [address], [place], [place], [address], [place] tel:[phone] [facility] No Information Oct-2 2-200 8 Wally Mejia. [facility] , [address], [place], [facility], [place]. tel:[phone] [facility], [address], [place], [place], [address], [place] tel:[phone] [facility] No Information Oct-2 1-200 8 Wally Mejia. [address] , [address], [place], [facility], . tel:[phone] [facility], [address] [place] [address] [address], [place], [place], [address], tel:[phone] [facility] No Information Oct-0 6-200 8 Wally Mejia. [facility] , [address], [place], [facility], . tel:[phone] Referring Provider: Roberto Ball [address] [place] [address] [address], [place], [facility]. tel:[phone] [facility], [address] [place], [place] [address], [place], [place], [id number], tel:[phone] [facility] No Information Oct-0 3-200 7 Wally Mejia. [address] [place] [address] , [address], [place], [facility], . tel:[phone] Family History Family Member Type Diagnosis Age At Onset No Information Payers Payer name Insurance type Covered republican ID Authoriza tion(s) No Information Social History [...]
--- OUTSIDE RECORDS SUMMARY | 2024-08-12 18:39 | XMS_ITS | Encounter Summary ---
Author Organization [facility] Address [address] [facility] [address] Care Team Providers Care Exceptional Needs Teacher Name Role Phone Unavailable Primary Care Provider Unavailabl e Encounter Details Date Type Department Care Team (Late st Contact Info) Description 12/30/2020 Lab Requisition [facility] [address] [facility], [place] [address] Sreekanth Thomas MD [address] [place] [address] Social History Tobacco Use Types [...] AM CDT) Case Report Dermatopathology Report Case: [id number] Authorizing Provider: Sreekanth Thomas MD Collected: 12/29/2020 12:00 AM Ordering Location: [facility] Received: 12/30/2020 11:13 AM Pathologist: [...] nose: INTRADERMAL MELANOCYTIC NEVUS (D22.39) 2:[address] [facility] Clinical History A-C: R/O BCC 2:[address] [facility] Gross Description Specimen A: Received [...] measuring 4x3x1 mm. Jar 0. 2:[address] [facility] Microscopic Description Specimen A. SKIN, [...] dermis that mature with depth. 2:[address] [facility] Disclaimer An external and internal positive and negative controls are appropriate for the histochemical, immunohistochemical and immunofluorescence stain(s) in this case (if any), except where stated explicitly. The performance characteristics of the stain(s) cited in this report were developed and its performance characteristic determined by the Dermatopathology Laboratory at [facility], directed by Dr. Analisa Hart. These tests need not be, and therefore are not, approved by the [place] Food and Drug Administration. The tests are used for clinical purposes. Billing Codes Specimen Charges Stain Charges 89155 17849 46526 1 1 1 08/27/202 1 2:57 PM [...] DERMATOPATHOLOGY LABORATORY [facility] - Department of Dermatology [facility] Medicine [address] [place] [address], [address] [phone] documented in this encounter Visit Diagnoses Not on filedocumented in this encounter
--- OUTSIDE RECORDS SUMMARY | 2024-08-12 18:39 | XMS_ITS | Clinical Summary ---
Author Organization [address] Address [address] [place] [address] Care Team Providers Care Production Boring Machine Operator Name Role Phone Francia Juárez MD Primary Care Provider Francia Juárez MD Unavailable [phone] Jaylen Iglesias MD Unavailable Allergies Active Allergy Reactions Criticality Noted Date [...] Description 08/12/2024 6:00 PM CDT Office Visit [facility] at [address] [address] Clemencia Gonsalez NP Facial asymmetry (Primary Dx); Elevated blood pressure reading 08/12/2024 Nurse Triage [address] [place] [phone] Francia Juárez MD 08/01/2024 10:15 AM CDT Ancillary Procedure [facility] at the [address]th [place] [address] [place] [address] Stenosis of carotid artery, unspecified laterality; Bilateral carotid artery stenosis 07/06/2024 2:15 PM CONSULTING ENGINEER Office Visit [facility] at [address] [phone] Jazmín Harding NP Lower respiratory infection (e.g., bronchitis, pneumonia, pneumonitis, pulmonitis) (Primary Dx) 06/11/[address] [address] Brittnee Rahman NP 06/04/2024 11:38 AM CONSULTING ENGINEER - 06/04/2024 11:59 PM CONSULTING ENGINEER Hospital Encounter [facility] [address] [place] [address] Discharge Disposition: Discharge to home or self care 06/04/[address] [address] Francia Juárez MD 06/04/2024 Orders Only [facility] at the [address] [address] Brittnee Rahman NP Abnormal renal function test 05/30/2024 Telephone [facility] [address] [facility] [address] [place] [address] Francia Juárez MD Additional Services [...] on file Legal Sex Female 1:49 AM CONSULTING ENGINEER Gender Identity Female 11/16/2021 11:10 AM CDT [...] 36.7 C (98 F) 07/06/2024 2:19 PM CONSULTING ENGINEER Respiratory Rate 20 08/12/2024 5:26 PM CDT [...] 1946 Hepatitis B Screening 1953 Covid-19 Vaccine (2023- season) 2024 03/04/2024, 03/04/2024, 02/09/2023, Additional history exists Depression Screening 04/24/2025 04/24/2024, 10/16/2023, 04/24/2023, Additional history exists Fall Risk Assessment 04/24/2025 04/24/2024, 10/16/2023, 04/24/2023, Additional history exists Well Visit 65+ 04/24/2025 04/24/2024, 04/06, 04/21/2022, Additional history exists Pneumococcal vaccine 65+ Completed 019, 02/10/2015, 05/07/2006 Zoster Vaccine Completed 03/04/2019, 11/05, 03/18/2013 Influenza Vaccine Completed 02/08/2024, , 02/09/2022, Additional history exists Procedures Procedure Name Priority Date/Time Associated Diagnosis Comments US CAROTIDS DUPLEX BILATERAL Schedule Routine, Read Routine (OP Routine) 08/01/2024 10:10 AM CDT Stenosis of carotid artery, unspecified laterality Bilateral carotid artery stenosis EGFR Routine 06/04/2024 11:38 AM CONSULTING ENGINEER Abnormal renal function test RENAL FUNCTION PANEL Routine 06/04/2024 11:38 AM CONSULTING ENGINEER Abnormal renal function test from Last 3 Months Results * US Carotids Duplex Bilateral (08/01/2024 10:10 AM CDT) Anatomical Region Laterality Modality Vascular Bilateral Ultrasound 08/01/2024 9:49 AM CDT Narrative 08/02/2024 8:57 AM CDT [facility] - Department of Vascular Surgery, Vascular Laboratory [address] [place] [address] Carotid Duplex Ultrasound Report Patient Name: ALEXANDREA BROOKE : 1935 (88y 8m) Study Date: 08/01/2024 9:49:09 AM Gender: F Tech: TT Location: [facility] Ref Provider: HOLLIE HALL Quality: Adequate [...] LT VERT PSV 68 cm/sec FINDINGS: Performing Stain Dipper: Mika Plunkett RVT. Rt Common Carotid Artery: [...] above. Electronically Signed By: Reggie Moore MD [facility] [phone] 08/02/2024 8:45:20 AM CDT Procedure Note Reggie Moore MD - 08/02/2024 [facility] - Department of Vascular Surgery,Vascular Laboratory [address] [place] [address] Carotid Duplex Ultrasound Report Patient Name: ALEXANDREA BROOKE : 1935 (88y 8m) Study Date: 08/01/2024 9:49:09 AM Gender: F Tech: TT Location: [facility] Ref Provider: HOLLIE HALL Quality: Adequate [...] LT VERT PSV 68 cm/sec FINDINGS: Performing Stain Dipper: Mika Plunkett RVT. Rt Common Carotid Artery: [...] above. Electronically Signed By: Reggie Moore MD [facility] [phone] 08/02/2024 8:45:20 AM CDT us Hollie Hall MD [facility] PROCEDURES Final Result * (ABNORMAL) eGFR (06/04/2024 11:38 AM CONSULTING ENGINEER) eGFR 50(L) >=60 mL/min/1. 73 m2 Comment: [...] reviewed 2021. Blood 06/04/2024 11:3 8 AM CONSULTING ENGINEER 06/04/2024 3:07 PM CONSULTING ENGINEER us Brittnee Rahman NP LAB BLOOD ORDERABLES Final Resu lt PA [facility] Department [place] [address] * Renal function panel (06/04/2024 11:38 AM CONSULTING ENGINEER) Sodium 140 135 - 145 mmol/L Potassium, pl 4.4 3.3 - 4.9 mmol/L [facility] Chloride 102 97 - 110 mmol/L [facility] CO2 30 22 - 32 mmol/L [facility] Anion gap 8 2 - 15 mmol/L [facility] BUN 24 6 - 25 mg/dL [facility] Creatinine 1.07 0.60 - 1.10 mg/dL [facility] Glucose 90 70 - 199 mg/dL [facility] Comment: Interpretive Data Fasting glucose [...] 2022. Calcium 10.1 8.5 - 10.3 mg/dL [facility] Phosphorus, pl 2.9 2.3 - 4.5 mg/dL [facility] Albumin 4.3 3.5 - 5.0 g/dL [facility] Blood 06/04/2024 11:3 8 AM CONSULTING ENGINEER 06/04/2024 2:49 PM CONSULTING ENGINEER us Brittnee Rahman NP LAB BLOOD ORDERABLES Final Resu lt [facility] Department [place] [address] from Last 3 Months Insurance MEDICARE COMMERCIAL GENERIC MEDICARE ELLIE MEDICARE SUPPLEMENT MEDICARE [facility] Care Teams Production Boring Machine Operator Relationship Specialty Start Date End Date Francia Juárez MD [employer] [place] [address] [place] [address] PCP - General Internal Medicine 12/26/23 Francia Juárez MD [employer] [address] [place] [address] 12/26/23 Jaylen Iglesias MD [address] [place] [address] Referring Physician Orthopedic Surgery 02/27/22
--- OUTSIDE RECORDS SUMMARY | 2024-08-12 18:39 | XMS_ITS | Clinical Summary ---
Author Organization [facility] Address [address] [place] [place] [address] Care Team Providers Care Hydrostatic Tubing Tester Name Role Phone Unavailable Primary Care Provider Unavailabl e Source Comments [facility],non-owned Affiliates and Associated Physician Practices is amultiple site organization consisting of ambulatory clinics and hospital sitesin [place], [place], [place] and [place]. This disclosure is being madepursuant to the Care Everywhere program and may not contain all information available regarding this patient. Last updated 18.[facility] Allergies Active Allergy Reactions Criticality Noted Date [...] propionate (FLONASE) 50 MCG/ACT nasal sprayIndications:Acute nasopharyngitis [place] 1 [place] into each nostril 2 times daily 1 [...] Comments Blood Pressure 128/74 03/29/2016 2:25 PM MAINTENANCE AND CUSTODIAN SUPERVISOR Pulse 86 03/29/2016 2:25 PM MAINTENANCE AND CUSTODIAN SUPERVISOR Temperature 36.8 C (98.3 F) 03/29/2016 2:25 PM MAINTENANCE AND CUSTODIAN SUPERVISOR Respiratory Rate 16 03/29/2016 2:25 PM MAINTENANCE AND CUSTODIAN SUPERVISOR Oxygen Saturation 96% 03/29/2016 2:25 PM MAINTENANCE AND CUSTODIAN SUPERVISOR Inhaled Oxygen Concentration - - Weight 63.5 kg (140 lb) 03/29/2016 2:25 PM MAINTENANCE AND CUSTODIAN SUPERVISOR Height 160 cm (5' 3 ) 03/29/2016 2:25 PM MAINTENANCE AND CUSTODIAN SUPERVISOR Body Mass Index 24.8 03/29/2016 2:25 PM MAINTENANCE AND CUSTODIAN SUPERVISOR Plan of Treatment Health Maintenance Due [...]
--- OUTSIDE RECORDS SUMMARY | 2024-08-12 18:39 | XMS_ITS | Encounter Summary ---
Author Organization [facility] Healthcare Address [address] [place] [address] Care Team Providers Care Loom Cleaner Name Role Phone Francia Juárez MD Primary Care Provider Francia Juárez MD Unavailable [phone] Jaylen Iglesias MD Unavailable [phone] Reason for Visit * Reason Onset Date Comments Hypertension 08/12/2024 Encounter Details Date Type Department Care Team (Late st Contact Info) Description 08/12/2024 Nurse Triage [facility] [address] [facility] [address] [place] [address] Francia Juárez MD [address] [place] [address] [address] [place], [place] [id number] Social History Tobacco Use Types Packs/Day Years [...] on file Legal Sex Female 1:49 AM URGENT CARE TECHNICIAN Gender Identity Female 11/16/2021 11:10 AM CDT Sexual Orientation Not on file documented as of this encounter Miscellaneous Notes * Telephone Encounter - Brittany Wolfe RN - 08/12/2024 4:57 PM CDT [facility] Nurse Triage: [facility] 04/24/24 cc: stiffness of left cheek BP [...] What do you advise? Secure chat with aeronautical inspector provider who recommends an UCC or CC or PCP. I scheduled a visit this evening at the [facility]. Reason for Disposition Neurologic deficit that was brief (now gone), ANY of the following: * Weakness of the face, arm, orleg on one side of the body * Numbness of the face, arm, or leg on one side of the body * Loss of speech or garbled speech Protocols used: Neurologic [id number] * Telephone Encounter - Brittany Wolfe RN [...] on filedocumented in this encounter Care Teams Loom Cleaner Relationship Specialty Start Date End Date Francia Juárez MD [address] [place] [address] [address] [place] [address] PCP - General Internal Medicine 12/26/23 Francia Juárez MD [address] [place] [address] [address] [place] [address] 12/26/23 Jaylen Iglesias MD [address] [place] [address] Referring Physician Orthopedic Surgery 02/27/22 documented as of this encounter
--- OUTSIDE RECORDS SUMMARY | 2024-08-12 18:39 | XMS_ITS | Referral Summary ---
Author Organization [facility] [address] Address [address] [place] [phone] Care Team Providers Care Carton Marker Machine Name Role Phone Francia Juárez MD Primary Care Provider Francia Juárez MD Unavailable [phone] Jaylen Iglesias MD Unavailable [phone] Encounters Date Type Department Care Team Description 08/12/2024 6:00 PM CDT Office Visit [facility] at [address] [phone] Clemencia Gonsalez NP Facial asymmetry (Primary Dx); Elevated blood pressure reading 08/12/2024 Nurse Triage [address] [place] [phone] Francia Juárez MD 08/01/2024 10:15 AM CDT Ancillary Procedure [facility] at [facility] [address] [place] [address] 8th [place] [address] Stenosis of carotid artery, unspecified laterality; Bilateral carotid artery stenosis 07/06/2024 2:15 PM MIXING SUPERVISOR Office Visit [facility] at [address] [phone] Jazmín Harding NP Lower respiratory infection (e.g., bronchitis, pneumonia, pneumonitis, pulmonitis) (Primary Dx) 06/11/[address] [place] [phone] Brittnee Rahman NP 06/04/2024 11:38 AM MIXING SUPERVISOR - 06/04/2024 11:59 PM MIXING SUPERVISOR Hospital Encounter [facility] [address] [place] [address] Discharge Disposition: Discharge to home or self care 06/04/2024 Telephone [facility] [address] [place] [phone] Francia Juárez MD 06/04/2024 Orders Only [facility] at the [address] [phone] Brittnee Rahman NP Abnormal renal function test 05/30/2024 Telephone [facility] [address] [place] [phone] Francia Juárez MD Additional Services Or Orders [...] on file Legal Sex Female 1:49 AM MIXING SUPERVISOR Gender Identity Female 11/16/2021 11:10 AM CDT Sexual Orientation Not on file Last Filed Vital Signs Vital Sign Reading Time Taken Comments Blood Pressure 192/80 08/12/2024 5:26 PM CDT Pulse 74 08/12/2024 5:26 PM CDT Temperature 36.7 C (98 F) 07/06/2024 2:19 PM MIXING SUPERVISOR Respiratory Rate 20 08/12/2024 5:26 PM CDT [...] artery stenosis EGFR Routine 06/04/2024 11:38 AM MIXING SUPERVISOR Abnormal renal function test RENAL FUNCTION PANEL Routine 06/04/2024 11:38 AM MIXING SUPERVISOR Abnormal renal function test from Last 3 Months Results * US Carotids Duplex Bilateral (08/01/2024 10:10 AM CDT) Anatomical Region Laterality Modality Vascular Bilateral Ultrasound 08/01/2024 9:49 AM CDT Narrative 08/02/2024 8:57 AM CDT [facility] - Department of Vascular Surgery, Vascular Laboratory [address] [place] [phone] Carotid Duplex Ultrasound Report Patient Name: ALEXANDREA BROOKE : 1935 (88y 8m) Study Date: 08/01/2024 9:49:09 AM Gender: F Tech: TT Location: [facility] Provider: HOLLIE HALL Quality: Adequate Order [...] LT VERT PSV 68 cm/sec FINDINGS: Performing Chemical Equipment Controller: Mika Plunkett RVT. Rt Common Carotid Artery: [...] above. Electronically Signed By: Reggie Moore MD [facility] [phone] 08/02/2024 8:45:20 AM CDT Procedure Note Reggie Moore MD - 08/02/2024 [facility] - Department of Vascular Surgery,Vascular Laboratory [address] [place] [address] Carotid Duplex Ultrasound Report Patient Name: ALEXANDREA BROOKE : 1935 (88y 8m) Study Date: 08/01/2024 9:49:09 AM Gender: F Tech: TT Location: [facility] Ref Provider: HOLLIE HALL Quality: Adequate Order [...] LT VERT PSV 68 cm/sec FINDINGS: Performing Chemical Equipment Controller: Mika Plunkett RVT. Rt Common Carotid Artery: [...] - PREVIOUS STUDIES: Previous carotid ultrasound on 3-24 Rt. <50% Lt. 50-69%, <50% per PSV. [...] above. Electronically Signed By: Reggie Moore MD [facility] [phone] 08/02/2024 8:45:20 AM CDT us Hollie Hall MD [facility] US PROCEDURES Final Result * (ABNORMAL) eGFR (06/04/2024 11:38 AM MIXING SUPERVISOR) eGFR 50(L) >=60 mL/min/1. 73 m2 Comment: [...] of Race in Diagnosing Kidney Disease, JASN 202). The CKD-EPI equation should not be used for patients with unstable renal function and has not been validated in children and those over 70. Current interpretive data was last reviewed 2021. Blood 06/04/2024 11:3 8 AM MIXING SUPERVISOR 06/04/2024 3:07 PM MIXING SUPERVISOR Brittnee Rahman NP LAB BLOOD ORDERABLES Final Resu lt PA [facility] Department [place] [address] * Renal function panel (06/04/2024 11:38 AM MIXING SUPERVISOR) Sodium 140 135 - 145 mmol/L Potassium, pl 4.4 3.3 - 4.9 mmol/L [facility] Chloride 102 97 - 110 mmol/L [facility] CO2 30 22 - 32 mmol/L [facility] Anion gap 8 2 - 15 mmol/L [facility] BUN 24 6 - 25 mg/dL [facility] Creatinine 1.07 0.60 - 1.10 mg/dL [facility] Glucose 90 70 - 199 mg/dL [facility] Comment: Interpretive Data Fasting glucose >/= [...] 2022. Calcium 10.1 8.5 - 10.3 mg/dL [facility] Phosphorus, pl 2.9 2.3 - 4.5 mg/dL [facility] Albumin 4.3 3.5 - 5.0 g/dL [facility] Blood 06/04/2024 11:3 8 AM MIXING SUPERVISOR 06/04/2024 2:49 PM MIXING SUPERVISOR Brittnee Rahman NP LAB BLOOD ORDERABLES Final Resu lt PA [facility] Department [place] [address] from Last 3 Months Insurance COMMERCIAL GENERIC MEDICARE ELLIE MEDICARE SUPPLEMENT MEDICARE [facility] Care Teams Carton Marker Machine Relationship Specialty Start Date End Date Francia Juárez MD [address] [place] [address] [address] [place] [address] PCP - General Internal Medicine 12/26/23 Francia Juárez MD [address] [place], [place] [address]K[address] [place] [address] 12/26/23 Jaylen Iglesias MD [facility] [place] [address] Referring Physician Orthopedic Surgery 02/27/22
[2024-08-12 19:03] LABS: Basophils Absolute Auto 0.1 K/mm3 (0.0-0.1); Basophils Percent Auto 1.1 % (0.2-1.2); Eosinophils Absolute Auto 0.4 K/mm3 (0-0.3); Eosinophils Percent Auto 4.1 % (0-4.4); Hematocrit 36.5 % (37.0-47.0); Hemoglobin 11.6 g/dL (12.0-15.0); Immature Granulocyte Absolute 0.03 K/mm3 (0.00-0.031); Immature Granulocyte Percent A 0.3 % (0-0.5); Lymphocytes Absolute Auto 2.33 K/mm3 (0.9-3.2); Lymphocytes Percent Auto 25.1 % (18.3-44.2); Mean Corpuscular HGB Conc 31.8 g/dl (32-36); Mean Corpuscular Volume 94.3 fl (80-100); Mean Platelet Volume 10.9 fl (7.4-10.4); Monocytes Absolute Auto 0.8 K/mm3 (0.1-0.6); Monocytes Percent Auto 8.3 % (2.6-8.5); Neutrophils Absolute Auto 5.7 K/mm3 (1.3-6.7); Neutrophils Percent Auto 61.1 % (45.5-73.1); Platelet Count Result 203 k/mm3 (150-375); Red Blood Count 3.87 M/mm3 (4.2-5.4); Red Cell Distribution Width 12.6 % (11.5-14.5); White Blood Count 9.3 K/mm3 (4.5-10.0)
[2024-08-12 19:07] VITALS: BP 156/69; PULSE 79; RESP 17; O2SAT 98
[2024-08-12 19:09] LABS: Glucose Point of Care 98 mg/dl (65-105)
[2024-08-12 19:13] LABS: Alanine Aminotransferase 27 U/L (6-35); Albumin Level 4.4 g/dL (3.5-5.1); Alkaline Phosphatase 103 U/L (38-126); Anion Gap 9 mmol/L (4-12); Aspartate Amino Transferase 26 U/L (14-36); Bilirubin,Total 0.8 mg/dL (0.2-1.3); Blood Urea Nitrogen 27 mg/dL (7-17); Calcium 9.4 mg/dL (8.4-10.2); Carbon Dioxide 26 mmol/L (22-30); Chloride 104 mmol/L (98-107); Estimated CRCL calculation 28 ml/min; Estimated Glomerular Filt Rate 52; Glucose 102 mg/dL (65-110); Sodium 139 mmol/L (137-145)
[2024-08-12 19:25] LABS: Troponin I < 0.012 ng/mL (0.000-0.034)
[2024-08-12 19:29] LABS: Prothrombin Time 13.2 Seconds (11.1-14.7)
[2024-08-12 19:30] LABS: Partial Thromboplastin Time 24.9 Seconds (22.3-36.8)
[2024-08-12 20:21] VITALS: BP 121/67; PULSE 70; RESP 18; O2SAT 95
[2024-08-12] MEDS: ASPIRIN 81 MG CHEWABLE TABLET 324 MG PO (23:14)
[2024-08-12] MEDS: CLOPIDOGREL BISULFATE 300 MG TABLET PO (23:14)
[2024-08-12 23:26] VITALS: BP 182/70; PULSE 68; RESP 18; O2SAT 96
--- NOTE | 2024-08-13 | ECHO_ITS ---
Patient Info Name: Brittani Brooke Age: 88 years : 1935 Gender: Female Ht: 63 in Wt: 137 lbs BSA: 1.67 m2 HR: 72 bpm BP: 172 / 65 mmHg Heart Rhythm: Sinus Rhythm Technical Quality: Good Exam Date: 08/13/2024 10:05 AM Exam Location: Echo Lab Patient Status: Inpatient Admit Date: 08/12/2024 Staff Ordering Physician: Lor Puente PA-C Security Attendant: Sharon Alvarado RDCS Attending Provider: Jose Lilly MD Referring Physician: Kwame WISDOM; Exam Type: CA echo doppler w bubble study Study Info Indications - CVA W/U Complete two-dimensional, color flow and Doppler transthoracic echocardiogram is performed with agitated saline. Contrast/Agitated Saline Contrast/Ag. Saline: Agitated Saline Amount: 20.00 ml Existing IV Access: Yes IV Access Condition: patent with no signs of infiltration Summary 1. Left ventricular chamber dimension is normal. 2. Left ventricular systolic function is normal, estimated at 65-70%. 3. The left ventricular diastolic function is grade I diastolic dysfunction. 4. E/e' 15 is elevated. 5. Left atrial chamber dimension is mildly enlarged. 6. There is mild aortic valve sclerosis. 7. There is trace aortic valve regurgitation. 8. No pulmonary hypertension, estimated pulmonary arterial systolic pressure is 29 mmHg. Left Ventricle E/e' 15 is elevated. Left ventricular chamber dimension is normal. Left ventricular systolic function is normal, estimated at 65-70%. The left ventricular diastolic function is grade I diastolic dysfunction. Right Ventricle Right ventricular systolic function is normal and with normal TAPSE 2.1 cm. Right ventricular chamber dimension is normal. Left Atria Left atrial chamber dimension is mildly enlarged. Right Atria Right atrial chamber dimension is normal. Atrial Septum Agitated saline injection with and without valsalva maneuver opacified right side cardiac chambers without shunt to left side cardiac chambers. Intact interatrial septum visualized by 2D and agitated saline imaging. Aortic Valve The aortic valve is trileaflet. There is mild aortic valve sclerosis. There is no aortic valve stenosis. There is trace aortic valve regurgitation. Pulmonic Valve There is no pulmonic regurgitation. Mitral Valve There is no mitral valve stenosis. There is no mitral valve regurgitation. Tricuspid Valve There is no tricuspid valve regurgitation. No pulmonary hypertension, estimated pulmonary arterial systolic pressure is 29 mmHg. Pericardium/Pleural There is no pericardial effusion. Inferior Vena Cava Normal inferior vena cava with >50% collapse upon inspiration consistent with normal right atrial pressure, 5 mmHg. Aorta The aortic root size at the sinus of Valsalva is normal. Left Ventricular Outflow Tract Name Value Normal LVOT 2D LVOT Diameter 2.0 cm LVOT Doppler LVOT Peak Gradient 8 mmHg LVOT Mean Gradient 3 mmHg LVOT VTI 27 cm LVOT VTI/AV VTI Ratio 0.7 LVOT Stroke Volume 83 ml LVOT CO 5.2 l/min LVOT CI 3.1 l/min/m2 Pulmonic Valve Name Value Normal RVOT Doppler RVOT Peak Gradient 4 mmHg PV Doppler PV Peak Gradient 6 mmHg Mitral Valve Name Value Normal MV Doppler MV Decel Ciales 443 cm/s2 MV PHT 58 ms MV Area (PHT) 3.8 cm2 4.0-5.0 MV Diastolic Function MV E Peak Velocity 88 cm/s MV A Peak Velocity 126 cm/s MV E/A 0.7 MV Decel Time 199 ms MV Annular TDI MV E/e' (Septal) 16.5 <=8.0 MV E/e' (Lateral) 15.4 <=8.0 MV E/e' (Average) 16.0 Tricuspid Valve Name Value Normal TV Regurgitation Doppler TR Peak Velocity 245 cm/s TR Peak Gradient 24 mmHg Estimated PAP/RSVP RA Pressure 5 mmHg <=5 PA Systolic Pressure 29 mmHg <36 RV Systolic Pressure 29 mmHg <36 Aorta Name Value Normal Ascending Aorta Ao Root Diameter (MM) 2.9 cm Ao Root Diam Index (MM) 1.8 cm/m2 Aortic Valve Name Value Normal AV Doppler AV Peak Velocity 185 cm/s AV Peak Gradient 14 mmHg AV Mean Gradient 7 mmHg AV VTI 39 cm AV Area (Cont Eq VTI) 2.2 cm2 >=3.0 AV Area (Cont Eq Norman) 2.3 cm2 AV Regurgitation 2D LVOT Area 3.0 cm2 Ventricles Name Value Normal LV Dimensions 2D/MM IVS Diastolic Thickness (2D) 1.0 cm 0.6-1.0 LVID Diastole (2D) 4.4 cm 3.8-5.2 LVIW Diastolic Thickness (2D) 0.9 cm 0.6-0.9 LVID Systole (2D) 2.5 cm 2.2-3.5 LVOT Diameter 2.0 cm LV Mass (2D Cubed) 140.16 g 67.00-162.00 LV Mass Index (2D Cubed) 84 g/m2 43-95 Relative Wall Thickness (2D) 0.43 LV Fractional Shortening/Ejection Fraction 2D/MM LV Fractional Shortening (2D) 44 % 27-45 LV EF (2D Teicholz) 76 % 54-74 LV Diastolic Volume (4C MOD) 51 ml LV EF (4C MOD) 69 % LV Diastolic Volume (2C MOD) 85 ml LV EF (2C MOD) 68 % LV Diastolic Volume (BP MOD) 66 ml 46-106 LV Diastolic Volume Index (BP MOD) 39 ml/m2 29-61 LV Systolic Volume (BP MOD) 21 ml 14-42 LV Systolic Volume Index (BP MOD) 13 ml/m2 8-24 LV EF (BP MOD) 68 % 54-74 LV Diastolic Length (4C) 7.2 cm LV Systolic Length (4C) 5.8 cm LV Stroke Volume (4C MOD) 35 ml Atria Name Value Normal LA Dimensions LA Dimension (MM) 4.6 cm 2.7-3.8 LA Volume (4C A-L) 54 ml LA Volume (BP A-L) 60 ml RA Dimensions RA Area (4C) 12.8 cm2 <=18.0 Report Signatures
[2024-08-13 00:37] VITALS: BMI 24.3; BMI 25.1
[2024-08-13 00:55] VITALS: BP 165/69; PULSE 68; RESP 18; TEMP 36.7; O2SAT 94
[2024-08-13 01:59] VITALS: PULSE 68
--- NOTE | 2024-08-13 03:53 | PM.IMHP ---
H&P: HPI History of Present Illness Date/Time: 08/13/24 03:53 Chief Complaint: 1. Right facial droop Narrative: Brittani Brooke is an 88-year-old female with a medical history significant for dyslipidemia, osteoporosis, hypertension and GERD About 1:00 p.m. on day of presentation, she was applying makeup in front of the mirror prior to visiting some friends noticed the right nasal labial fold which more shallow compared to the left; with no know modifying factors, it came to be associated with anxiety. She denies associated symptoms of visual/speech impairment, focal limb weakness, dizziness, falls or chest pain She does not smoke/2 tobacco, drink alcohol or consume recreational/illicit drugs. Work-up findings: VS demonstrate hypertension At the bedside, the right nasolabial fold is more shallow than the left. 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 No large vessel occlusion. CT Head: No acute intracranial hemorrhage or suspicious mass effect. Brittani Brooke will be admitted evaluated and managed for possible CVA Review of Systems Review of Systems: All systems reviewed & are unremarkable except as noted in HPI and below PMFSH Past Medical History Medical History History of hyperlipidemia History of hypertension Family History Family History Father Family history of coronary artery disease Patient's father is Other Family history of arthritis Family history of cardiovascular disease Social History Social History Smoking status: Never smoker Second hand tobacco smoke exposure: No Alcohol intake: never Substance use: never Substance use type: does not use Do You Feel Safe in your Home?: Yes Lack of Transportation: No Lack of Food: Never True Current Housing: I Have Housing Concerned About Future Housing: No Difficulty Paying Gas/Electric Bills: No Difficulty Paying for Meds: No Currently Unemployed: No Education: High School Diploma/GED Difficulty w/ Childcare or Family Care: No Gender identity (if verbalized by the patient): Female Spiritual care concerns: No Meds Home Medications and Allergies Home Medications ?Medication ?Instructions ?Recorded ?Confirmed ?Type alpha lipoic acid 300 mg capsule 300 mg PO BID 08/13/24 08/13/24 History amlodipine 5 mg tablet 5 mg PO DAILY 08/13/24 08/13/24 History ascorbic acid (vitamin C) 500 mg 500 mg PO BID 08/13/24 08/13/24 History tablet (C-500) aspirin 81 mg tablet,delayed 81 mg PO DAILY 08/13/24 08/13/24 History release (Danii Low Dose Aspirin) atorvastatin 20 mg tablet 20 mg PO QPM 08/13/24 08/13/24 History calcium 600 mg (as 1 tablet PO BID 08/13/24 08/13/24 History carbonate)-vitamin D3 10 mcg (400 unit) tablet (Calcium 600 + D(3)) celecoxib 200 mg capsule 200 mg PO Q24H 08/13/24 08/13/24 History coenzyme Q10 100 mg capsule (Co 400 mg PO BID 08/13/24 08/13/24 History Q-10) ergocalciferol (vitamin D2) 50 mcg 50 mcg PO DAILY 08/13/24 08/13/24 History (2,000 unit) capsule fosinopril 40 mg tablet 40 mg PO BID 08/13/24 08/13/24 History hydrochlorothiazide 12.5 mg tablet 12.5 mg PO DAILY 08/13/24 08/13/24 History omeprazole 20 mg capsule,delayed 20 mg PO DAILY 08/13/24 08/13/24 History release Allergies Allergy/AdvReac Type Severity Reaction Status Date / Time Sulfa (Sulfonamide Allergy Unknown Verified 03/06/16 10:25 Antibiotics) Vital Signs Vital Signs - 24 hr 08/12/24 18:06 08/12/24 19:07 08/12/24 20:21 Temperature 98.5 F Pulse Rate 75 79 70 Respiratory Rate 16 17 18 Blood Pressure 170/74 H 156/69 H 121/67 Pulse Oximetry 96 98 95 Oxygen Delivery 08/12/24 23:26 08/13/24 00:55 08/13/24 01:59 Temperature 98.1 F Pulse Rate 68 68 68 Respiratory Rate 18 18 Blood Pressure 182/70 H 165/69 H Pulse Oximetry 96 94 Oxygen Delivery Room Air Exam Const: General: comfortable HENMT: Ears: TM's normal bilaterally Face/Nose/Sinus: Normal nares present Mouth: Yes moist mucous membranes Eyes: General: appearance normal, both eyes and all related structures Pupils: Equal, round and reactive pupils present EOM: EOMs intact bilaterally Resp: Effort & Inspection: normal respiratory effort Auscultation: clear to auscultation bilaterally Cardio: Rate: regular rate Rhythm: regular rhythm GI: GI Palp: Yes Soft to palpation Auscultation: normal bowel sounds Skin: General skin exam: normal color Wounds: no wounds Neuro: General: gait normal Speech: normal speech Motor exam (neuro): 5/5 motor strength present throughout and Normal motor muscle tone present throughout Psych: Mental Status: mental status grossly normal Affect: normal affect H&P: Results Labs Labs: Short CBC 08/12/24 Range/Units 18:57 WBC 9.3 (4.5-10.0) K/mm3 Hgb 11.6 L (12.0-15.0) g/dL Hct 36.5 L (37.0-47.0) % Plt Count 203 (150-375) k/mm3 BMP 08/12/24 18:57 Sodium 139 Potassium 4.0 Chloride 104 Carbon Dioxide 26 BUN 27 H Creatinine 1.01 H Glucose 102 Calcium 9.4 Cardiac Enzymes 08/12/24 Range/Units 18:57 Troponin I < 0.012 (0.000-0.034) ng/mL Liver Function 08/12/24 Range/Units 18:57 Total Bilirubin 0.8 (0.2-1.3) mg/dL AST 26 (14-36) U/L ALT 27 (6-35) U/L Alkaline Phosphatase 103 (38-126) U/L Albumin 4.4 (3.5-5.1) g/dL Assessment and Plan Assessment and plan (1) Stroke-like symptoms: Code(s): R29.90 - Unspecified symptoms and signs involving the nervous system Status: Acute (2) Facial droop: Code(s): R29.810 - Facial weakness Status: Acute Plan Acute and principal conditions 1. Stroke-like symptoms 2. Right facial droop Rx: A. MRI brain B. ST/PT/OT eval and Rx C. ECHO if CVA confirmed D. Lipid panel; HbA1c E. Fall and safety precautions F. Telemetry monitoring Chronic and stable conditions 1. GERD. On PPI 2. Dyslipidemia. On Atorvastatin 3. Hypertension. On Amlodipine Miscellaneous care 1. Code status. Full 2. Nutrition. heart healthy 3. VTE prophylaxis.
[2024-08-13 04:00] VITALS: BP 172/65; PULSE 72; RESP 18; TEMP 37.1; O2SAT 95
[2024-08-13] MEDS: SODIUM CHLORIDE 0.9% IV 1,000 ML 50 ML IV CONT (04:38)
[2024-08-13 06:20] LABS: Basophils Absolute Auto 0.1 K/mm3 (0.0-0.1); Basophils Percent Auto 1.3 % (0.2-1.2); Eosinophils Absolute Auto 0.4 K/mm3 (0-0.3); Eosinophils Percent Auto 5.3 % (0-4.4); Hematocrit 34.2 % (37.0-47.0); Hemoglobin 10.9 g/dL (12.0-15.0); Immature Granulocyte Absolute 0.04 K/mm3 (0.00-0.031); Immature Granulocyte Percent A 0.5 % (0-0.5); Lymphocytes Absolute Auto 1.99 K/mm3 (0.9-3.2); Lymphocytes Percent Auto 24.9 % (18.3-44.2); Mean Corpuscular HGB Conc 31.9 g/dl (32-36); Mean Corpuscular Hemoglobin 30.4 pg (26-34); Mean Corpuscular Volume 95.5 fl (80-100); Mean Platelet Volume 11.1 fl (7.4-10.4); Monocytes Absolute Auto 0.7 K/mm3 (0.1-0.6); Monocytes Percent Auto 8.6 % (2.6-8.5); Neutrophils Absolute Auto 4.8 K/mm3 (1.3-6.7); Neutrophils Percent Auto 59.4 % (45.5-73.1); Platelet Count Result 187 k/mm3 (150-375); Red Blood Count 3.58 M/mm3 (4.2-5.4); Red Cell Distribution Width 12.3 % (11.5-14.5)
[2024-08-13 06:33] LABS: Cholesterol 110 mg/dL (0-200); HDL Direct 38 mg/dL; Triglycerides 64 mg/dL (<150)
[2024-08-13 06:35] LABS: Alanine Aminotransferase 25 U/L (6-35); Albumin Level 3.9 g/dL (3.5-5.1); Alkaline Phosphatase 107 U/L (38-126); Anion Gap 7 mmol/L (4-12); Aspartate Amino Transferase 26 U/L (14-36); Bilirubin,Total 0.9 mg/dL (0.2-1.3); Blood Urea Nitrogen 24 mg/dL (7-17); Calcium 9.3 mg/dL (8.4-10.2); Carbon Dioxide 28 mmol/L (22-30); Chloride 104 mmol/L (98-107); Estimated CRCL calculation 33 ml/min; Estimated Glomerular Filt Rate > 60; Glucose 112 mg/dL (65-110); Potassium 4.1 mmol/L (3.4-5.0); Sodium 139 mmol/L (137-145)
[2024-08-13 06:44] LABS: LDL Cholesterol Direct 49 mg/dL
[2024-08-13 07:00] LABS: Hemoglobin A1C 5.9 % (<5.7)
[2024-08-13 08:00] VITALS: BP 182/70; PULSE 71; PULSE 78; RESP 18; TEMP 36.5; O2SAT 98
[2024-08-13 08:15] LABS: Glucose Point of Care 108 mg/dl (65-105)
[2024-08-13] MEDS: lisinopriL 20 MG TABLET 40 MG PO (08:16)
[2024-08-13] MEDS: CHOLECALCIFEROL 1,000 UNITS TABLET 2000 UNITS PO (08:16)
[2024-08-13] MEDS: CLOPIDOGREL BISULFATE 75 MG TABLET PO (08:16)
[2024-08-13] MEDS: ASPIRIN 81 MG ENTERIC TABLET PO (08:17)
[2024-08-13] MEDS: CALCIUM/VITAMIN D 500 MG/5 MCG (200 I.U.) TABLET PO (08:17)
[2024-08-13] MEDS: PANTOPRAZOLE 40 MG TABLET PO (08:17)
[2024-08-13] MEDS: amLODIPine BESYLATE 5 MG TABLET PO (08:17)
[2024-08-13] MEDS: HEPARIN SODIUM 5,000 UNITS/ML VIAL 5000 UNITS SUB-Q (08:17)
--- NOTE | 2024-08-13 10:00 | PCSTNOTE ---
Please refer to the Bedside Swallow Evaluation in the EMR. Please note, silent aspiration cannot be ruled out at bedside. The above pleasant & cooperative pt was seen for a swallow evaluation at the bedside. She independently positioned herself upright at the bedside. She was alert & oriented x 4 and able to follow commands. She is currently on a heart-healthy regular diet and denies dysphagia. Oral mucosa is normal; natural dentition is in good condition; Oral peripheral exam revealed a mild/trace right-sided lingual and labial weakness. Tongue slightly deviated to the right and labial retraction on the right was slightly weak. (ST provided labial exercises which she exhibited understanding as she returned demonstration) Speech intelligibility is 100% clear. She was able to dry swallow on command and exhibited clear vocal quality. She was tested with pudding, crackers, and thin liquids in controlled and uncontrolled amounts. The oral stages appeared WNL. No oral leakage, residual, or pocketing was noted. During the pharyngeal stage, swallow reflex appeared prompt & laryngeal elevation was adequate. No overt s/s of aspiration were exhibited; however, silent aspiration cannot be ruled out at the bedside. General impression is functional/normal swallow ability. Recommendations: Continue the current diet. Notify ST if further difficulty develops. No further ST at this time. Thank you for this referral.
[2024-08-13] MEDS: hydroCHLOROthiazide 12.5 MG CAPSULE PO (10:14)
[2024-08-13] MEDS: LORazepam INJ (*CRX) 2 MG/ML VIAL 0.5 MG IV PUSH (10:26)
--- NOTE | 2024-08-13 10:28 | PC.NURSE ---
Pre-medicated with Ativan 0.5mg IVP prior to MRI.
--- NOTE | 2024-08-13 11:00 | PC.NURSE ---
To MRI per stretcher.
--- NOTE | 2024-08-13 11:25 | PC.NURSE ---
Returned to room per wheelchair from MRI.
[2024-08-13 12:00] VITALS: BP 142/71; PULSE 64; RESP 18; TEMP 36.7; O2SAT 96
--- NOTE | 2024-08-13 12:24 | P.CONNEU_ITS ---
Consult date: 08/13/24 HPI: Brittani Brooke is a 88 year old female Admitted to the hospital through the emergency room for the complaints of right facial droop, initially seen in the her station and call the primary care physician who suggested her to go to [facility] urgent care who sent them to the emergency room. Patient has been taking multiple medications particularly amlodipine 5mg daily, aspirin 81mg daily, atorvastatin 20mg daily, Celebrex 200mg Q 24hours, fosinopril 40mg twice a day, hydrochlorothiazide 12.5mg daily, and omeprazole 20mg daily, allergic to sulfa, she does not drink alcohol ,does not smoke, initial exam in the emergency room was grossly nonfocal with normal vital signs except the blood pressure 170/74, routine lab studies including CBC BMP and master scan were normal, head CT scan was negative for the bleed and head neck CTA documented high-grade stenosis of left vertebral artery at its origin, MRI of the brain done today is negative and echocardiogram is pending. Review of Systems 2 Review of Systems: All systems reviewed & are unremarkable except as noted in HPI and below PMFSH Past Medical History Medical History History of hyperlipidemia History of hypertension Family History Family History Father Family history of coronary artery disease Patient's father is Other Family history of arthritis Family history of cardiovascular disease Social History Social History Smoking status: Never smoker Second hand tobacco smoke exposure: No Alcohol intake: never Substance use: never Substance use type: does not use Do You Feel Safe in your Home?: Yes Lack of Transportation: No Lack of Food: Never True Current Housing: I Have Housing Concerned About Future Housing: No Difficulty Paying Gas/Electric Bills: No Difficulty Paying for Meds: No Currently Unemployed: No Education: High School Diploma/GED Difficulty w/ Childcare or Family Care: No Gender identity (if verbalized by the patient): Female Spiritual care concerns: No Meds Home Medications and Allergies Home Medications ?Medication ?Instructions ?Recorded ?Confirmed ?Type alpha lipoic acid 300 mg capsule 300 mg PO BID 08/13/24 08/13/24 History amlodipine 5 mg tablet 5 mg PO DAILY 08/13/24 08/13/24 History ascorbic acid (vitamin C) 500 mg 500 mg PO BID 08/13/24 08/13/24 History tablet (C-500) aspirin 81 mg tablet,delayed 81 mg PO DAILY 08/13/24 08/13/24 History release (Danii Low Dose Aspirin) atorvastatin 20 mg tablet 20 mg PO QPM 08/13/24 08/13/24 History calcium 600 mg (as 1 tablet PO BID 08/13/24 08/13/24 History carbonate)-vitamin D3 10 mcg (400 unit) tablet (Calcium 600 + D(3)) celecoxib 200 mg capsule 200 mg PO Q24H 08/13/24 08/13/24 History coenzyme Q10 100 mg capsule (Co 400 mg PO BID 08/13/24 08/13/24 History Q-10) ergocalciferol (vitamin D2) 50 mcg 50 mcg PO DAILY 08/13/24 08/13/24 History (2,000 unit) capsule fosinopril 40 mg tablet 40 mg PO BID 08/13/24 08/13/24 History hydrochlorothiazide 12.5 mg tablet 12.5 mg PO DAILY 08/13/24 08/13/24 History omeprazole 20 mg capsule,delayed 20 mg PO DAILY 08/13/24 08/13/24 History release Allergies Allergy/AdvReac Type Severity Reaction Status Date / Time Sulfa (Sulfonamide Allergy Unknown Verified 03/06/16 10:25 Antibiotics) Vital Signs Vital Signs - 24 hr 08/12/24 18:06 08/12/24 19:07 08/12/24 20:21 Temperature 36.9 C Pulse Rate 75 79 70 Respiratory Rate 16 17 18 Blood Pressure 170/74 H 156/69 H 121/67 Pulse Oximetry 96 98 95 Oxygen Delivery 08/12/24 23:26 08/13/24 00:55 08/13/24 01:59 Temperature 36.7 C Pulse Rate 68 68 68 Respiratory Rate 18 18 Blood Pressure 182/70 H 165/69 H Pulse Oximetry 96 94 Oxygen Delivery Room Air 08/13/24 04:00 08/13/24 08:00 08/13/24 08:00 Temperature 37.1 C 36.5 C Pulse Rate 72 78 71 Respiratory Rate 18 18 Blood Pressure 172/65 H 182/70 H Pulse Oximetry 95 98 Oxygen Delivery 08/13/24 10:44 Temperature Pulse Rate Respiratory Rate Blood Pressure Pulse Oximetry Oxygen Delivery Room Air Results Labs 08/13/24 05:58 08/13/24 05:58 Labs: Short CBC 08/12/24 08/13/24 Range/Units 18:57 05:58 WBC 9.3 8.0 (4.5-10.0) K/mm3 Hgb 11.6 L 10.9 L (12.0-15.0) g/dL Hct 36.5 L 34.2 L (37.0-47.0) % Plt Count 203 187 (150-375) k/mm3 BMP 08/12/24 08/13/24 18:57 05:58 Sodium 139 139 Potassium 4.0 4.1 Chloride 104 104 Carbon Dioxide 26 28 BUN 27 H 24 H Creatinine 1.01 H 0.83 Glucose 102 112 H Calcium 9.4 9.3 Cardiac Enzymes 08/12/24 Range/Units 18:57 Troponin I < 0.012 (0.000-0.034) ng/mL Liver Function 08/12/24 08/13/24 Range/Units 18:57 05:58 Total Bilirubin 0.8 0.9 (0.2-1.3) mg/dL AST 26 26 (14-36) U/L ALT 27 25 (6-35) U/L Alkaline Phosphatase 103 107 (38-126) U/L Albumin 4.4 3.9 (3.5-5.1) g/dL
[2024-08-13 12:35] VITALS: PULSE 63
--- NOTE | 2024-08-13 14:11 | P.DS_ITS ---
DS: Admitting Diagnosis Discharge Date 08-13-2024 Admitting Diagnosis TIA/facial droop DS: Discharge Diagnosis Discharge Diagnosis (1) Stroke-like symptoms: Code(s): R29.90 - Unspecified symptoms and signs involving the nervous system Status: Acute (2) Facial droop: Code(s): R29.810 - Facial weakness Status: Acute Plan disposition: Discharged to home DS: Summary Hospital Course Reason for hospitalization: TIA/facial droop/ Ferrara's pa Hospital Course: Patient was a 88-year-old female with a medical history significant for dyslipidemia, osteoporosis, hypertension and GERD Patient prior to arrival to the hospital noticed right nasal labial fold which more shallow compared to the left and left facial droop at that time she denied any associated symptoms of visual/speech impairment, focal limb weakness, dizziness, falls or chest pain Work-up findings: VS demonstrate hypertension At the bedside, the right nasolabial fold is more shallow than the left POA WBC 9.3; HGB 11.6; MCV 94; PLT 203 Labs unremarkable Troponin: <0.012 ECG: NSR; LVH; QTC 449; 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 No large vessel occlusion. CT Head: No acute intracranial hemorrhage or suspicious mass effect. MRI: with normal aging brain Patient was admitted for observation and evaluation for possible stroke vs TIA with evaluation by neurology. patient had echocardiogram which revealed left atrial chamber dimension mildly enlarged with mild aortic valve sclerosis and trace aortic valve regurgitation. During her hospitalization symptoms had improved and no further deficits noted. patient was seen and assessed today discharge alert and oriented x4 with no neurological deficits noted. discussed with patient and family at bedside recommendation for cardiac event monitor outpatient and follow-up with vascular surgery for her high-grade stenosis. patient ambulatory on own all extremities with 5/5 strength. patient had initially received Plavix 300 mg and then started on 75 due to patient's age a normal MRI discontinued and encouraged to just resume her ASA at home. patient and family acknowledged and agreed with discharge plan patient discharged home transported via family. Status at Discharge Functional status at discharge: independent ambulation Overall status at discharge: patient is back to baseline Time Spent with Patient Time attestation: Total time spent providing and/or coordinating discharge services: Time spent: Greater than 30 minutes Exam Const: General: comfortable HENMT: Ears: TM's normal bilaterally Face/Nose/Sinus: Normal nares present Mouth: Yes moist mucous membranes Other: Left facial droop Eyes: General: appearance normal, both eyes and all related structures Pupils: Equal, round and reactive pupils present EOM: EOMs intact bilaterally Resp: Effort & Inspection: normal respiratory effort Auscultation: clear to auscultation bilaterally Cardio: Rate: regular rate Rhythm: regular rhythm GI: Auscultation: normal bowel sounds Skin: General skin exam: normal color Wounds: no wounds Neuro: General: gait normal Cranial nerves: Yes Equal, round and reactive pupils present Speech: normal speech Motor exam (neuro): 5/5 motor strength present throughout and Normal motor muscle tone present throughout Psych: Mental Status: mental status grossly normal Affect: normal affect DS: Data Data Completed and Pending Labs on day of discharge: Labs from last 24 hours 08/13/24 08/13/24 08/12/24 07:46 05:58 19:06 WBC 8.0 RBC 3.58 L Hgb 10.9 L Hct 34.2 L MCV 95.5 MCH 30.4 MCHC 31.9 L RDW 12.3 Plt Count 187 MPV 11.1 H Immature Gran % (Auto) 0.5 Neut % (Auto) 59.4 Lymph % (Auto) 24.9 [place] % (Auto) 8.6 H Eos % (Auto) 5.3 H Baso % (Auto) 1.3 H Lymph # (Auto) 1.99 [place] # (Auto) 0.7 H Eos # (Auto) 0.4 H Baso # (Auto) 0.1 Abs Immat Gran (auto) 0.04 H Absolute Neuts (auto) 4.8 Absolute Nucleated RBC 0.000 Nucleated RBC % 0.0 PT INR APTT Sodium 139 Potassium 4.1 Chloride 104 Carbon Dioxide 28 Anion Gap 7 BUN 24 H Creatinine 0.83 Estim Creat Clear Calc 33 Estimated GFR > 60 Glucose 112 H POC Capillary Glucose 108 H 98 Hemoglobin A1c 5.9 H Calcium 9.3 Total Bilirubin 0.9 AST 26 ALT 25 Alkaline Phosphatase 107 Troponin I Total Protein 6.0 L Albumin 3.9 Triglycerides 64 Cholesterol 110 LDL Cholesterol Direct 49 HDL Direct 38 08/12/24 18:57 WBC 9.3 RBC 3.87 L Hgb 11.6 L Hct 36.5 L MCV 94.3 MCH 30.0 MCHC 31.8 L RDW 12.6 Plt Count 203 MPV 10.9 H Immature Gran % (Auto) 0.3 Neut % (Auto) 61.1 Lymph % (Auto) 25.1 [place] % (Auto) 8.3 Eos % (Auto) 4.1 Baso % (Auto) 1.1 Lymph # (Auto) 2.33 [place] # (Auto) 0.8 H Eos # (Auto) 0.4 H Baso # (Auto) 0.1 Abs Immat Gran (auto) 0.03 Absolute Neuts (auto) 5.7 Absolute Nucleated RBC 0.000 Nucleated RBC % 0.0 PT 13.2 INR 1.0 APTT 24.9 Sodium 139 Potassium 4.0 Chloride 104 Carbon Dioxide 26 Anion Gap 9 BUN 27 H Creatinine 1.01 H Estim Creat Clear Calc 28 Estimated GFR 52 L Glucose 102 POC Capillary Glucose Hemoglobin A1c Calcium 9.4 Total Bilirubin 0.8 AST 26 ALT 27 Alkaline Phosphatase 103 Troponin I < 0.012 Total Protein 7.0 Albumin 4.4 Triglycerides Cholesterol LDL Cholesterol Direct HDL Direct Imaging Radiologist's impression: CTA brain carotid Ordering provider: Lor Puente PA-C History: . R facial droop . Comparison: None. Technique: CT angiogram head and neck was performed following timed intravenous injection of contrast. Thin slice axial images and reformatted coronal images were obtained. Three dimensional reformatted images of the brain were also obtained using a [employer] workstation. DLP: 854 mGy-cm FINDINGS: HEAD: --ANTERIOR AND MIDDLE CEREBRAL ARTERIES AND BRANCHES: Normal caliber and contour. --INTERNAL CAROTID ARTERIES: Mild atheromatous disease but no significant stenosis. No occlusion. --BASILAR ARTERY AND BRANCHES: Normal caliber and contour. No atheromatous disease. 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 --ANEURYSM: None visualized. --BRAIN: Please refer to report of CT head performed the same day. --BONES AND SUPERFICIAL SOFT TISSUES: Please refer to report of CT head performed the same day. --PARANASAL SINUSES AND MASTOIDS: Please refer to report of CT head done the same day. NECK: --RIGHT CERVICAL CAROTID SYSTEM: Normal caliber and contour. Percent stenosis per NASCET criteria is 0% No carotid dissection. Otherwise, no significant atheromatous disease or stenosis of the cervical carotid system. --LEFT CERVICAL CAROTID SYSTEM: Mild atheromatous disease of the carotid bulb and proximal internal carotid artery without significant stenosis. Percent stenosis per NASCET criteria is 30%. No carotid dissection. --VERTEBRAL ARTERIES: Right side dominant. Normal caliber and contour. --VISUALIZED AORTIC ARCH AND BRANCHING VESSELS: Mild atheromatous disease. High- grade stenosis of the origin of the left vertebral artery. --SOFT TISSUES: Heterogeneous appearance of the thyroid gland, a nonspecific finding in a patient of this age. --CERVICAL SPINE: Age appropriate degenerative changes. IMPRESSION: Percent stenosis per NASCET criteria is 0% on the right and 30% on the left. 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 No large vessel occlusion. EXAMINATION: MR brain/brain stem wo/w con DATE: 08/13/2024 11:24 INDICATION: Acute stroke with right facial droop TECHNIQUE: Magnetic resonance imaging (MRI) of the brain and brainstem was performed 12 mL ProHance intravenous contrast. Sequences included sagittal and axial T1-weighted SE, axial diffusion-weighted FS SE, axial T2*-weighted GRE, axial T2-weighted FLAIR, and axial T2-weighted FSE. Postcontrast axial and coronal T1-weighted SE was obtained. Apparent diffusion coefficient (ADC) maps were created. COMPARISON: Head CT and CT angiogram dated 08/12/2024 FINDINGS: There are no areas of restricted diffusion to suggest acute infarction. No intracranial hemorrhage or abnormal intracranial mass lesion. Single small focus of white matter T2 hyperintensity the right frontal lobe which is well within normal limits for age. There are no intraparenchymal signal abnormalities seen on the other pulse sequences. The ventricles are symmetric and normal in size. There are no abnormal extra-axial fluid collections. Flow voids are seen in the cerebral arteries on the T2-weighted sequences consistent with their expected patency. Changes of bilateral intraocular lens replacement. Visualized orbits an d soft tissues are unremarkable. There are no areas of abnormal enhancement on the post contrast images. IMPRESSION: 1. Normal for age brain. No acute intracranial process. Discharge Plan Discharge Attending physician on discharge: Brian Gonzalez Consulting providers: Beto Pompa; Olga Shepherd; Lauren Shepherd; Mj Barriga; Jimenez Harmon; Brandon Reyes; Padmini Hernández Discharging Clinician: Olga Shepherd Anticipated Discharge Date/Time: 08/13/24 13:57 Patient Disposition: Home Activity: may shower and as tolerated Diet: heart healthy Discharge Instructions: Right facial droop:TIA vs Ferrara's Palsy * A MRI was completed that showed no acute stroke * Continue your aspirin and Atorvastatin as prescribed * A echocardiogram (ultrasound of your heart) was completed no significant findings * I would recommend an event monitor outpatient to evaluate for any cardiac arrhythmias * If symptoms persist can also recommend referral to ENT is likely resolve within 3-6 months * I provided information on TIA and Ferrara's palsy attached to this discharge. * Follow-up with primary care physician within 2-3 weeks of discharge How can you care for yourself at home? ? Keep track of any new symptoms or changes in your symptoms. ? Rest until you feel better. ? Be safe with medicines. Take your medicines exactly as prescribed. Call your doctor if you think you are having a problem with your medicine. ? Do not drive after taking a prescription pain medicine. ? Ensure to follow-up with primary care physician as indicated and provide updated medication list provided to you at discharge. When should you call for help? Call 911 anytime you think you may need emergency care. For example, call if: ? You passed out (lost consciousness). Call your doctor now or seek immediate medical care if: ? You have new symptoms like fever, difficulty breathing, Chest pain, vomiting, or rash. ? You have new or different pain. ? You are confused and are having trouble thinking clearly. ? Your symptoms are getting worse. Watch closely for changes in your health, and be sure to contact your doctor if: ? You do not get better as expected. Patient Instructions: Antibiotic Form, Transient Ischemic Attack (DC), Ferrara Palsy (DC) Patient Language: Bulgarian Stand Alone Forms: General Discharge Information Follow-up/Referrals: Franck,Francia Norman [Other] - 2 Weeks Discharge Medications: Continued amlodipine 5 mg tablet 5 mg PO DAILY omeprazole 20 mg capsule,delayed release(DR/EC) 20 mg PO DAILY hydrochlorothiazide 12.5 mg tablet 12.5 mg PO DAILY atorvastatin 20 mg tablet 20 mg PO QPM celecoxib 200 mg capsule 200 mg PO Q24H fosinopril 40 mg tablet 40 mg PO BID aspirin [Danii Low Dose Aspirin] 81 mg tablet,delayed release (DR/EC) 81 mg PO DAILY ergocalciferol (vitamin D2) 50 mcg (2,000 unit) capsule 50 mcg PO DAILY ascorbic acid (vitamin C) [C-500] 500 mg tablet 500 mg PO BID calcium carbonate-vitamin D3 [Calcium 600 + D(3)] 600 mg-10 mcg (400 unit) tablet 1 tablet PO BID alpha lipoic acid 300 mg capsule 300 mg PO BID coenzyme Q10 [Co Q-10] 100 mg capsule 400 mg PO BID Date of admission: 08/12/24 23:19 Primary Care Provider: FranckFrancia Admitting Provider: Jose Lilly Attending physician on admission: Brian Gonzalez Condition: Stable Quality VTE Prophylaxis VTE prophylaxis: mechanical ordered -Patient's previous records reviewed on admission -ER notes reviewed in detail on admission -discussed all findings and current treatment plan with patient/Family/POA -Consultations reviewed for recommendations -Patient's disposition for safe discharge discussed with disease case manager rn Dictation performed by [employer] direct speech recognition software, therefore observation assistant variants and typographical errors may occur. Hospitalist MIPS Heart Failure (Exclusion) Patient has history of Heart Transplant or Left Ventricular Assistive Device?: No IF YES, STOP HERE Heart Failure (Qualifier) Patient has current or prior documentation of LVEF less than or equal to 40%, or mod/servere depressed LVSF?: No IF NO, STOP HERE
--- NOTE | 2024-08-13 14:53 | P.CONNEU_ITS ---
Assessment and Plan Assessment and plan (1) TIA (transient ischemic attack): Code(s): G45.9 - Transient cerebral ischemic attack, unspecified Status: Acute Plan 1. TIA 2. No significant abnormalities on the echocardiogram. 3. 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 Initially seen in the local fire station then she called her primary care physician who recommended her to go to [facility] urgent care and they sent her to the emergency room at the [facility]. Patient has been receiving multiple medications particularly amlodipine 5mg daily, aspirin 81mg daily, atorvastatin 20mg daily, Celebrex 200mg Q 24hours, fosinopril 40mg daily, hydrochlorothiazide 12.5mg daily, and omeprazole 20mg daily. She is known to be allergic to sulfa and in the past she has ongoing history of 1. Hypertension 2. Hyperlipidemia 3. Never a smoker 4. Never alcohol intake initial exam in the emergency room were grossly nonfocal, vital signs were normal except the blood pressure 170/74 was admitted here for further evaluation, echocardiogram revealed left atrial chamber dimension mildly enlarged with mild aortic valve sclerosis and trace aortic valve regurgitation. 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 Patient remained in the hospital till the everything was carried out. Review of Systems 2 Review of Systems: All systems reviewed & are unremarkable except as noted in HPI and below [facility] Past Medical History Medical History History of hyperlipidemia History of hypertension Family History Family History Father Family history of coronary artery disease Patient's father is Other Family history of arthritis Family history of cardiovascular disease Social History Social History Smoking status: Never smoker Second hand tobacco smoke exposure: No Alcohol intake: never Substance use: never Substance use type: does not use Do You Feel Safe in your Home?: Yes Lack of Transportation: No Lack of Food: Never True Current Housing: I Have Housing Concerned About Future Housing: No Difficulty Paying Gas/Electric Bills: No Difficulty Paying for Meds: No Currently Unemployed: No Education: High School Diploma/GED Difficulty w/ Childcare or Family Care: No Gender identity (if verbalized by the patient): Female Spiritual care concerns: No Meds Home Medications and Allergies Home Medications ?Medication ?Instructions ?Recorded ?Confirmed ?Type alpha lipoic acid 300 mg capsule 300 mg PO BID 08/13/24 08/13/24 History amlodipine 5 mg tablet 5 mg PO DAILY 08/13/24 08/13/24 History ascorbic acid (vitamin C) 500 mg 500 mg PO BID 08/13/24 08/13/24 History tablet (C-500) aspirin 81 mg tablet,delayed 81 mg PO DAILY 08/13/24 08/13/24 History release (Danii Low Dose Aspirin) atorvastatin 20 mg tablet 20 mg PO QPM 08/13/24 08/13/24 History calcium 600 mg (as 1 tablet PO BID 08/13/24 08/13/24 History carbonate)-vitamin D3 10 mcg (400 unit) tablet (Calcium 600 + D(3)) celecoxib 200 mg capsule 200 mg PO Q24H 08/13/24 08/13/24 History coenzyme Q10 100 mg capsule (Co 400 mg PO BID 08/13/24 08/13/24 History Q-10) ergocalciferol (vitamin D2) 50 mcg 50 mcg PO DAILY 08/13/24 08/13/24 History (2,000 unit) capsule fosinopril 40 mg tablet 40 mg PO BID 08/13/24 08/13/24 History hydrochlorothiazide 12.5 mg tablet 12.5 mg PO DAILY 08/13/24 08/13/24 History omeprazole 20 mg capsule,delayed 20 mg PO DAILY 08/13/24 08/13/24 History release Allergies Allergy/AdvReac Type Severity Reaction Status Date / Time Sulfa (Sulfonamide Allergy Unknown Verified 03/06/16 10:25 Antibiotics) Vital Signs Vital Signs - 24 hr 08/12/24 18:06 08/12/24 19:07 08/12/24 20:21 Temperature 36.9 C Pulse Rate 75 79 70 Respiratory Rate 16 17 18 Blood Pressure 170/74 H 156/69 H 121/67 Pulse Oximetry 96 98 95 Oxygen Delivery 08/12/24 23:26 08/13/24 00:55 08/13/24 01:59 Temperature 36.7 C Pulse Rate 68 68 68 Respiratory Rate 18 18 Blood Pressure 182/70 H 165/69 H Pulse Oximetry 96 94 Oxygen Delivery Room Air 08/13/24 04:00 08/13/24 08:00 08/13/24 08:00 Temperature 37.1 C 36.5 C Pulse Rate 72 78 71 Respiratory Rate 18 18 Blood Pressure 172/65 H 182/70 H Pulse Oximetry 95 98 Oxygen Delivery 08/13/24 10:44 08/13/24 12:00 08/13/24 12:35 Temperature 36.7 C Pulse Rate 64 63 Respiratory Rate 18 Blood Pressure 142/71 H Pulse Oximetry 96 Oxygen Delivery Room Air Exam 2 Narrative: Awake alert cooperative , head normocephalic with no bruit ear nose throat examination normal neck supple with no cervical bruit no thyromegaly or lymphadenopathy, heart regular with no murmur lungs clear to auscultation abdomen is soft no organomegaly neurologically she is awake alert oriented x3 speech not dysphasic not dysarthric not dysphonic the cranial nerve examination is normal motor examination revealed her to have normal strength no drift reflexes symmetrical plantars downgoing there is no evidence of gross Results Labs 08/13/24 05:58 08/13/24 05:58 Labs: Short CBC 08/12/24 08/13/24 Range/Units 18:57 05:58 WBC 9.3 8.0 (4.5-10.0) K/mm3 Hgb 11.6 L 10.9 L (12.0-15.0) g/dL Hct 36.5 L 34.2 L (37.0-47.0) % Plt Count 203 187 (150-375) k/mm3 BMP 08/12/24 08/13/24 18:57 05:58 Sodium 139 139 Potassium 4.0 4.1 Chloride 104 104 Carbon Dioxide 26 28 BUN 27 H 24 H Creatinine 1.01 H 0.83 Glucose 102 112 H Calcium 9.4 9.3 Cardiac Enzymes 08/12/24 Range/Units 18:57 Troponin I < 0.012 (0.000-0.034) ng/mL Liver Function 08/12/24 08/13/24 Range/Units 18:57 05:58 Total Bilirubin 0.8 0.9 (0.2-1.3) mg/dL AST 26 26 (14-36) U/L ALT 27 25 (6-35) U/L Alkaline Phosphatase 103 107 (38-126) U/L Albumin 4.4 3.9 (3.5-5.1) g/dL
== END 2024-08-13 15:03 | disposition home or self-care (01) ==
LOC: ANHED 22:50 → ANH3MEDSUR 08-13 08:31
PROVIDERS: Physician Assistant; Admitting Provider Internal Medicine; Emergency Provider Physician Assistant; Visit Provider Internal Medicine
DX: R29.810 Facial weakness (principal); R29.90 Unspecified symptoms and signs involving the nervous system; I65.02 Occlusion and stenosis of left vertebral artery; I10 Essential (primary) hypertension; E78.5 Hyperlipidemia, unspecified; M81.0 Age-related osteoporosis without current pathological fracture; K21.9 Gastro-esophageal reflux disease without esophagitis; Z79.82 Long term (current) use of aspirin; Z79.899 Other long term (current) drug therapy; Z88.2 Allergy status to sulfonamides
CPT/HCPCS: 36415; 70450; 70496; 70498; 70553; 80053; 80061; 82948; 83036; 84484; 85025; 85610; 85730; 92610; 93005; 93306; 96374; 96375; 97161; 97165; 99285; A9270; A9579; G0378; J1644; J2060; J7030; Q9967